=== PATIENT | male | born 1935 | race Caucasian/White ===

== ENCOUNTER 2017-09-22 04:06 | Inpatient (IN) | payer OTHER, MEDICARE ==
[~2017-09-22] VITALS: Ht 185.4 cm; Wt 123.8 kg
[~2017-09-22 04:06] MED LIST: AMLODIPINE10 MG PO; BENICAR HCT 12.1 TA2 PO; CIPRO 500MG TA500 MG PO; DOCUSATE SODIU100 MG PO; DOXAZOSIN MESYLA1 MG PO; EDARBI40 MG PO; ELIQUIS5 MG PO; FERRALET 90 TA1 EACH PO; FUROSEMIDE20 M1 PO; INVOKANA100 MG PO; JARDIANCE10 M1 PO; LOSARTAN POTAS100 MG PO; LOVASTATIN40 MG PO; MAGNESIUM OXID400 MG PO; MAGNESIUM500 M2 PO; METFORMIN HYD1000 MG PO; NATURE'S BLEND400 IU PO; VICODIN5-300 PO; VICTOZA6 MG/ML SC; VITAMIN B12250 MCG PO; VITAMIN B12500 MCG PO; VITAMIN D1000 IU PO
--- NOTE | 2017-09-22 10:17 | Operative Report ---
Operative/Inv Procedure Report Surgery Date: 09/22/17 Name of Procedure: Left total hip arthroplasty Pre-Operative Diagnosis: Primary osteoarthritis left hip Post-Operative Diagnosis: Same Estimated Blood Loss: 300 cc Surgeon/Traffic Ii Manager: Sylwia FROST,Dennis Ortega PAC Anesthesia: general endotracheal tube IV Fluids: See anesthesia record Implants: [place] Accolade 2 total hip prosthetic femoral stem, Roe Trident acetabular shell size 62 with a standard neck length and a 36 mm head stem at 127 neck angle Drains: None Specimens: Left femoral head Complications: None Condition: Stable Operative Indication: Patient's an 82-year-old male with severe osteoarthritis of the left hip with failed conservative treatment and was indicated for left total hip arthroplasty. Risks and benefits of procedure were discussed with the patient detail in the office and after clearance from his primary care physician's chief engineer's helper the patient was to proceed with the surgery. Skilled set hands necessary provided by physician assistant Suresh Ortega weighted with retraction and positioning and component assembly throughout the case. Operative/Procedure Note Note: Once informed consent was obtained and the correct limb was identified patient brought to operative room placed on table supine position. After administration of general endotracheal anesthesia the patient was placed in right lateral decubitus position on the pegboard with the axillary roll in place and all bony prominences well-padded. A Orosco catheter had been placed. The left lower 70 was then prepped and draped usual sterile fashion. To begin the procedure standard incision for the superior approach the left hip was made from the tip of the greater trochanter and carried posteriorly and line with gluteus karma. Sharp dissection was carried down to the skin and subcutaneous tissue. The gluteus karma fascia was identified and incised sharply with a #10 blade. The fibers of the gluteus karma were bluntly dissected. Retractors were placed underneath the gluteus medius and around the femoral neck. The piriformis tendon was identified and released released from its insertion the piriformis fossa and tacked. The gluteus minimus muscle belly was identified and the retractors placed deep to that. Superior capsulotomy was performed. Labrum was removed from the acetabulum and the hip was dislocated. Femoral neck cut was made 1 fingerbreadth above the lesser trochanter and the femoral head was passed off as specimen. Anterior and inferior acetabular retractors were placed for visualization purposes. Osteophytes removed from the anterior medial wall of the acetabulum with a curved osteotome. Reaming was begun with the 47 reamer and we sequentially reamed up to a 61 reamer. A 62 trial was placed and found to be a good fit. A 62 acetabular shell was opened and after the acetabulum was pulse lavaged the acetabular shell was placed into the acetabulum was press-fit technique. Excellent fixation was obtained. No need for screw supplementation. The liner was opened and locked into place on the acetabular shell. Attention was then turned to the femur. The femur was internally rotated and a femoral neck elevator was placed underneath the femoral neck and a retractor was placed underneath the lateral femoral neck for visualization purposes a box osteotome was used to open up the femoral canal laterally. An initial reamer was used to open up distally and we then began broaching. We were able to broach up to a size 8 Accolade 2 stem. This was left in place and a standard neck length and a 36 mm head was placed on the stem for trial reduction. Leg lengths were basically equal although leg lengths are difficult to senior underwriting assistant due to flexion contractures of both knees and arthritis in the right hip. The hip was stable to 90 of flexion and 20 of internal rotation with 20 of adduction. The hip was dislocated and the components removed. A size 8 active bleed 2 stem was opened and press-fit down the femoral canal without any complication. 36 mm head and 0 neck length was opened and placed onto the stem. The hip was reduced and taken through a range of motion. It was again found to be stable. At this point and hip was pulse lavaged. The capsule was repaired through drill hole in the greater trochanter. The gluteus karma fascia was repaired with #1 running looped Maxon suture. The subcutaneous tissues closed with #1 Vicryl and 2-0 Vicryl interrupted sutures and the skin was closed campbell. Sterile dressing was applied and patient was awakened taken recovery in stable condition.
--- NOTE | 2017-09-22 11:28 | RADIOLOGY REPORT ---
EXAMINATION: XR HIP, LEFT CLINICAL INFORMATION: Left hip replacement COMPARISON: 05/31/2017 TECHNIQUE: Left hip, single AP view FINDINGS: Large body habitus. The femoral head prosthesis appears well-positioned within the acetabular cup on this single view exam. The acetabular cup is appropriately abducted. The femoral stem is well centered in the medullary cavity of the proximal femoral diaphysis and there is no periprosthetic fracture. Skin campbell project lateral to the hip. IMPRESSION: - The hardware for the left hip arthroplasty appears appropriately positioned on this single view exam. - No acute periprosthetic fracture.
[2017-09-22 12:05] VITALS: BP 120/80
--- NOTE | 2017-09-22 13:56 | Cons- Medical ---
Vinnie FROST,Kirill 09/22/17 1356: General Information and HPI Consulting Request Date of Consult: 09/22/17 Requested By: Sylwia FROST,Dennis Mayers Reason for Consult: co-mgmt of medical conditions Source of Information: patient, family, old records Exam Limitations: no limitations History of Present Illness: This is an 82-year-old gentleman with past medical history significant for atrial fibrillation, hypertension, diabetes, BPH, hyperlipidemia, past surgical history significant for lap Meagan for gallstone pancreatitis, carpal tunnel surgery, bilateral knee replacements, who is admitted to the surgical service for planned left total hip arthroplasty secondary to primary osteoarthritis. Medicine consult placed for co-management for his co-morbid medical conditions. The procedure was performed this a.m. with EBL 300 mL. I saw patient postsurgically and he is doing very well. He was eating and voiding with Orosco in place. No bowel movement and no complaints. He states that he has less pain in his hip postsurgically then his baseline lvl of pain. Patient denies any headache, change in vision, shortness of breath, chest pain, fever, nausea, vomiting, or diarrhea. Social history significant for occasional/social use of etoh, no IVDA or smoking. Allergies/Medications Allergies: Coded Allergies: oxycodone (GI, JUMPY 09/22/17) Home Med List: Amlodipine Besylate (Amlodipine) 10 MG TABLET 1 TAB PO DAILY HTN (Reported) CHOLECALCIFEROL (VITAMIN D3) (Vitamin D3) 400 UNIT TABLET 1 TAB PO DAILY SUPPLEMENT (Reported) Empagliflozin (Jardiance) 10 MG TABLET 1 TAB PO DAILY OTHER (Reported) Furosemide 20 MG TABLET 1 TAB PO BID DIURETIC (Reported) Iron Carb,Gl/FA/B12/C/Docusate (Ferralet 90 Tablet) 90 MG-1 MG-12 MCG-120 MG-50 MG TABLET 1 TAB PO DAILY SUPPLEMENT (Reported) Losartan Potassium 100 MG TABLET 1 TAB PO DAILY HTN (Reported) Lovastatin 40 MG TABLET 1 TAB PO EOD CHOLESTEROL (Reported) with food Magnesium Oxide (Magnesium) 500 MG CAPSULE 1 CAP PO BID SUPPLMENT (Reported) METFORMIN HCL (Metformin Hydrochloride) 1,000 MG TABLET 1 TAB PO BID DIABETES (Reported) Current Medications: Current Medications Sig/Becca Start time Last Medication Dose Route Stop Time Status Admin Acetaminophen 650 MG ONCE 09/22 0000 DC PO 09/22 2359 Al Hydroxide/Mg 30 ML Q6P PRN 09/22 1215 AC Hydroxide PO Amlodipine Besylate 10 MG DAILY 09/23 1000 AC PO Apixaban 5 MG BID 09/23 1000 AC PO Atorvastatin Calcium 10 MG 1700 09/23 1700 AC PO Celecoxib 400 MG DAILY 09/23 1000 AC PO Celecoxib 400 MG ONCE 09/22 0000 DC PO 09/22 2359 Dexamethasone 10 MG ONCE 09/22 0000 DC IV 09/22 2359 Docusate Sodium 100 MG DAILY NEEDED PRN 09/22 1215 AC PO Doxazosin Mesylate 1 MG DAILY 09/22 1530 AC 09/22 PO 1707 Fentanyl Citrate 250 MCG .STK-MED ONE 09/22 0713 DC IM 09/22 0714 Furosemide 20 MG BID 09/22 2200 AC PO Gabapentin 300 MG ONCE 09/22 0000 DC PO 09/22 2359 Hydrocodone Bitart/ 1 TAB Q6P PRN 09/22 1215 AC Acetaminophen PO Hydrocodone Bitart/ 2 TAB Q6P PRN 09/22 1215 AC Acetaminophen PO Hydromorphone HCl 2 MG .STK-MED ONE 09/22 0713 DC IM 09/22 0714 Insulin Aspart 0 AT BEDTIME 09/22 2200 AC SC Insulin Aspart 0 TIDAC 09/22 1700 AC 09/22 SC 1700 Losartan Potassium 100 MG DAILY 09/23 1000 AC PO Metformin HCl 1,000 MG BID 09/22 2200 AC PO Midazolam HCl 4 MG .STK-MED ONE 09/22 0714 DC IM 09/22 0715 Morphine Sulfate 2 MG Q3P PRN 09/22 1215 AC IV Morphine Sulfate 4 MG Q3P PRN 09/22 1215 AC IV Ondansetron HCl 4 MG Q6P PRN 09/22 1215 AC IV Oxycodone HCl 0 .STK-MED ONE 09/22 0651 DC PO Oxycodone HCl 10 MG ONCE 09/22 0000 DC PO 09/22 2359 Polyethylene Glycol 17 GM DAILY NEEDED PRN 09/22 1215 AC PO Scopolamine HBr 1 PAT ONCE 09/22 0000 DC TOP 09/22 2359 Senna/Docusate Sodium 2 TAB AT BEDTIME NEED.. 09/22 1215 AC PO Sodium Chloride 1,000 ML .[id number] 09/22 1215 DC 09/22 IV 1228 Tranexamic Acid 2,000 MG .STK-MED ONE 09/22 0713 DC IV 09/22 0714 Vancomycin HCl 2,000 MG ONCE ONE 09/22 1900 AC Sodium Chloride 500 ML IV 09/22 205 Vancomycin HCl 2,000 MG ONCE 09/22 0000 DC Sodium Chloride 500 ML IV 09/22 2359 Review of Systems Review of Systems Constitutional: Reports: see HPI. Past History Medical History Blood Transfusion Hx: Yes Neurological: NONE EENT: NONE Cardiovascular: AFIB, hypertension, hyperlipidemia Respiratory: NONE Gastrointestinal: NONE Hepatic: NONE Renal: NONE Musculoskeletal: osteoarthritis Psychiatric: NONE Endocrine: diabetes Blood Disorders: NONE Cancer(s): NONE Surgical History Surgical History: cholecystectomy, hernia repair-inguinal, knee replacement Psychosocial History Where Do You Live? Home Services at Home: None Smoking Status: Unknown If Ever Smoked Exam & Diagnostic Data Last 24 Hrs of Vital Signs/I&O Vital Signs Date Time Temp Pulse Resp B/P B/P Pulse O2 O2 Flow FiO2 Mean Ox Delivery Rate 09/22 1630 98.1 70 19 132/72 96 Room Air 09/22 1437 97.7 73 18 130/70 95 Room Air 09/22 1205 97.6 63 16 120/80 94 Room Air Room Air Intake & Output 09/22 1600 09/22 0800 09/22 0000 Intake Total 950 Output Total 300 Balance 650 Intake, IV 150 Intake, Oral 800 Number 0 Bowel Movements Output, Urine 300 Patient 123.831 kg Weight Weight Bed scale Measurement Method Physical Exam General Appearance: well developed/nourished, no apparent distress, alert, awake , comfortable Head: atraumatic, normal appearance Eyes: Bilateral: PERRL, EOMI. Ears, Nose, Throat: normal ENT inspection Neck: supple Respiratory: normal breath sounds, chest non-tender, no respiratory distress, quiet respiration, lungs clear Cardiovascular: irregularly irregular Gastrointestinal: soft, non-tender Extremities: Pt tender to move L leg. Area of surgery clean to inspection. He has foam pad and band around his legs. sensation intact. LLE has venous stasis changes and a superficial abrasion underneath ALP. Last 24 Hrs of Labs/Bulmaro: as Assessment/Plan Assessment/Plan This is an 82-year-old gentleman with past medical history significant for atrial fibrillation, hypertension, diabetes, BPH, hyperlipidemia who is admitted to the surgical service for planned left total hip arthroplasty secondary to primary osteoarthritis. Medicine consult placed for co-management for his co- morbid medical conditions. No labs were done today X-ray of his hip shows good placement of hardware and no acute periprosthetic fracture. Plan: 1. Hypertension: Patient has BP 120/80 today. Will hold off on starting his medications until tomorrow. * Continue amlodipine 10 mg daily * Continue losartan 100 mg daily * Lisinopril 40mg bid 2. Atrial fibrillation: Patient has history of A. fib status post unsuccessful cardioversion. He is currently on 5 mg of Eliquis twice a day. * Soon as there is no surgical contraindication would suggest restarting Eliquis 3. BPH:Would start doxazosin 1 mg daily today. He is getting IV fluids. Given that he is on lasix at home and is not started in hospital would hold be judicious in not giving him too much fluid. * Start Doxizosin 1mg daily 4. DM: Last A1c in 2016 at 8.0. Hold home oral meds * RISS * FS * Diabetic diet 5. Other supplements: Pt is on Mag 500mg daily, B12, and Vit D at home. These can be resumed tomorrow. FC Diabetic diet Problem List: 1. A-fib 2. Unilateral primary osteoarthritis, left hip Consult Acknowledgment - Thank you for your consult request. Lizzy FROST,Sushma 09/22/17 1439: Past History Psychosocial History Other Social History: Family history is positive for hypertension. He also says that his a cancer in his family but he is not sure what type. Assessment/Plan Consult Acknowledgment - Thank you for your consult request. Attending MD Review Statement Attending Statement Attending MD Statement: examined this patient, discuss w/resident/PA/SOCIAL SCIENCES RESEARCH SCIENTIST, agreed w/resident/PA/SOCIAL SCIENCES RESEARCH SCIENTIST, reviewed EMR data (avail), discussed with nursing, reviewed images Attending Assessment/Plan: 82-year-old male past medical history of hypertension, hyperlipidemia, diabetes, A. fib who is here status post a total hip arthroplasty. Patient takes Eliquis in addition to his diabetic meds and his antihypertensives and in addition he is on Lasix 40 by mouth twice a day as an outpatient as well. Right now he is asymptomatic and doing well. He doesn't appear to be in congestive heart failure and is not having any clinical signs and symptoms suggestive of ischemia. Will follow closely. Continue his antihypertensives, continue his cholestrol and antihypertensive meds. Restart his diabetic meds once he is eating a diet. We will alert the surgical PA to be very judicious with the use of IV fluids given the hefty dose of Lasix that he takes. And they will also need to restart the Eliquis as soon as it's okay with the orthopedic physician for his A. fib.
[2017-09-22 14:37] VITALS: BP 130/70
--- NOTE | 2017-09-22 15:13 | PN- Orthopedic ---
Subjective Subjective: POSTOP CHECK oob to chair, +uo via aguilar, no n/v, no cp/sob/palps, christi ada diet, pain well controlled. Objective Vital Signs and I&Os Vital Signs Date Time Temp Pulse Resp B/P B/P Pulse O2 O2 Flow FiO2 Mean Ox Delivery Rate 09/22 1437 97.7 73 18 130/70 95 Room Air 09/22 1205 97.6 63 16 120/80 94 Room Air Room Air Intake & Output 09/22 1600 09/22 0800 09/22 0000 09/21 1600 09/21 0800 09/21 0000 Intake Total 950 Output Total 300 Balance 650 Intake, IV 150 Intake, Oral 800 Number 0 Bowel Movements Output, Urine 300 Patient 273 lb Weight Weight Bed scale Measurement Method FS: 259 Physical Exam: GEN- NAD CARD- S1S2 RRR PULM- CTAB ABD- soft nt obese EXT- LLE: hip dressing CDI, ttp at incision, gross motor/sensory intact, palp DP. BLE: calves soft, nt Assessment/Plan Assessment/Plan A- POD0 sp L SMITHA, stable, with appropriate postop pain, PT recommending STR placement, with uncontrolled FS at this time. P- - ada diet as tolerated - HL - WBAT, PT, OOB - ALPS, Eliquis 5mg BID - prn pain meds - home meds, FS, add RISS in addition to home metformin - DC planning Core Measures Venous Thromboembolism VTE Risk Factors Surgery No Mechanical VTE Prophylaxis d/t N/A MechProphylax Ordered No VTE Pharm Prophylaxis d/t NA PharmProphylax ordered
--- NOTE | 2017-09-22 15:17 | Patient Discharge Instructions ---
Discharge Instructions General Discharge Information You were seen/treated for: Left hip pain related to unilateral primary osteoarthritis You had these procedures: Left total hip replacement Watch for these problems: Increasing pain despite the use of pain medication Increasing redness, warmth or swelling Drainage of any type from incision Inability to bear weight on operative leg Persistent nausea and vomiting Fever greater than 101.5 degrees Do not soak the wound: Yes No bath, but you may shower: Yes Other wound care: Please keep wound clean and dry. No ointments or lotions of any type on or near incision at any time. No exceptions. Your dressing will be changed by your nurse on the second day after your surgery. Daily dry dressing changes are recommended each day thereafter. Do not soak your wound in a bath at any time until otherwise indicated by your surgeon. You may shower, please dry wound immediately after shower with a clean towel. Special Instructions: Posterior hip precautions to remain in place for 3 months unless otherwise indicated by Dr. Dao. They include the following: -No bending at waste greater than 90 degrees -Do not cross left leg over right leg -Avoid rotating left leg inward Diet Continue normal diet: Yes Recommended Diet: Regular Activity Full Activity/No Limits: No Activity Self Limited: Yes Pounds, do NOT lift more than: 10 Activity Limited to: Weight bear as tolerated Acute Coronary Syndrome Inclusion Criteria At DC or during hospital stay patient has or had the following: ACS DIAGNOSIS No Discharge Core Measures Meds if any: Prescribed or Continued at Discharge Meds if any: NOT Prescribed or Continued at Discharge Congestive Heart Failure Inclusion Criteria At DC or during hospital stay patient has or had the following: CHF DIAGNOSIS No Discharge Core Measures Meds if any: Prescribed or Continued at Discharge Meds if any: NOT Prescribed or Continued at Discharge Cerebrovascular accident Inclusion Criteria At DC or during hospital stay patient has or had the following: CVA/TIA Diagnosis No Discharge Core Measures Meds if any: Prescribed or Continued at Discharge Meds if any: NOT Prescribed or Continued at Discharge Venous thromboembolism Inclusion Criteria VTE Diagnosis No VTE Type NONE VTE Confirmed by (Test) NONE Discharge Core Measures - Per Current guidelines, there needs to be overlap - treatment for the first 5 days of Warfarin therapy. - If discharged on Warfarin prior to 5 days of - overlap therapy, the patient will need to be - assessed for post discharge needs including - *Post discharge parental anticoagulation - *Warfarin and/or parental anticoagulation education - *Follow up date to check INR post discharge At least 5 days overlap therapy as Inpatient No Meds if any: Prescribed or Continued at Discharge Note: Overlap Therapy is Warfarin and Anticoagulant Meds if any: NOT Prescribed or Continued at Discharge
--- NOTE | 2017-09-22 15:19 | Surgical Discharge Summary ---
Visit Information Visit Dates Admission Date: 09/22/17 Discharge Date: 09/28/17 History of Present Illness Chief Complaint: Left hip pain related to unilateral primary osteoarthritis Medical History Blood Transfusion Hx: Yes Neurological: NONE EENT: NONE Cardiovascular: AFIB, hypertension, hyperlipidemia Respiratory: NONE Gastrointestinal: NONE Hepatic: NONE Renal: NONE Musculoskeletal: osteoarthritis Psychiatric: NONE Endocrine: diabetes Blood Disorders: NONE Cancer(s): NONE History of MRSA: No History of VRE: No History of CDIFF: No Isolation History: Standard Pneumonia Vaccine: 08/12/06 Influenza Vaccine: 08/20/17 Surgical History Pertinent Surgical History: cholecystectomy, hernia repair-inguinal, knee replacement Psychosocial History Where Do You Live? Home Who Do You Live With? Patient/Self Services at Home: None What is Your Primary Language? Tristanian Review of Systems: See H&P Hospital Course Course Attending Physician: Dennis Dao MD Primary Care Physician: Danilo Paredes MD Hospital Course: Patient was admitted to the hospital for an elective total joint replacement. The procedure was tolerated well and patient was transferred to a general surgical floor. Pt was noted to be confused postoperatively and required a 1:1 sitter x 2 days postop. Confusion eventually resolved, Diet was advanced and tolerated, and the patient voided spontaneously. The patient was evaluated and treated by physical therapy. At the time of hospital discharge, the vital signs were stable, neurovascular status was intact, and pain was controlled with the use of oral pain medications. Allergies: Coded Allergies: oxycodone (GI, JUMPY 09/22/17) Disposition Summary Disposition Principal Diagnosis: Left hip unilateral primary osteoarthritis Additional Diagnosis: None Discharge Disposition: SNF Discharge Instructions General Discharge Information Code Status: Full Code Patient's Diet: Regular, Advance as tolerated Patient's Activity: WBAT Follow-Up Instructions/Appts: Follow up in Dr. Dao's office in 2 weeks from date of surgery Medications at Discharge Discharge Medications: Continue taking these medications: Amlodipine Besylate (Amlodipine) 10 MG TABLET 1 Tablet ORAL DAILY Qty = 30 Comments: Last Taken: 10/06/14 Time: 0820AM METFORMIN HCL (Metformin Hydrochloride) 1,000 MG TABLET 1 Tablet ORAL TWICE DAILY Qty = 60 Comments: Last Taken: 10/06/14 Time: 0820AM Furosemide (Furosemide) 20 MG TABLET 1 Tablet ORAL TWICE DAILY Comments: Last Taken: 09/27/17 Time: 1100AM Lovastatin (Lovastatin) 40 MG TABLET 1 Tablet ORAL Every other day Qty = 30 Instructions: with food Comments: Last Taken: 10/05/14 Time: 1630PM (LIPITOR) Losartan Potassium (Losartan Potassium) 100 MG TABLET 1 Tablet ORAL DAILY Qty = 90 Comments: Last Taken: 10/06/14 Time: 0820AM CHOLECALCIFEROL (VITAMIN D3) (Vitamin D3) 400 UNIT TABLET 1 Tablet ORAL DAILY Comments: NOT GIVEN IN HOSPITAL Iron Carb,Gl/FA/B12/C/Docusate (Ferralet 90 Tablet) 90 MG-1 MG-12 MCG-120 MG-50 MG TABLET 1 Tablet ORAL DAILY Comments: NOT GIVEN IN HOSPITAL Empagliflozin (Jardiance) 10 MG TABLET 1 Tablet ORAL DAILY Comments: NOT GIVEN IN HOSPITAL Magnesium Oxide (Magnesium) 500 MG CAPSULE 1 Capsule ORAL TWICE DAILY Comments: Last Taken: 09/27/17 Time: 1100AM Start taking the following new medications: Apixaban (Eliquis) 5 MG TABLET 1 Tablet ORAL TWICE DAILY Qty = 84 No Refills Comments: Last Taken: 09/27/17 Time: 1100AM Hydrocodone/Acetaminophen (Hydrocodon-Acetaminophen 5-325) 5 MG-325 MG TABLET 1-2 Tablet ORAL EVERY 4-6 HOURS NEEDED as needed for PAIN Qty = 30 No Refills Comments: Last Taken:09/26/17 Time: 2300PM
--- NOTE | 2017-09-22 15:20 | Admission Core Measures ---
Acute Coronary Syndrome (CM) ACS Core Measures Acute Coronary Syndrome Diagnosis No Congestive Heart Failure (NEW) CHF Core Measures Congestive Heart Failure Diagnosis No Cerebrovascular Accident (NEW) CVA Core Measures CVA/TIA Diagnosis No Venous Thromboembolism VTE Core Jose (View Protocol) VTE Risk Factors Surgery No Mechanical VTE Prophylaxis d/t N/A MechProphylax Ordered No VTE Pharm Prophylaxis d/t NA PharmProphylax ordered Problem List As ranked by this Provider includes Assessment & Plan 1. Unilateral primary osteoarthritis, left hip HOME MEDS Home Med List Amlodipine Besylate (Amlodipine) 10 MG TABLET 1 TAB PO DAILY HTN (Reported) CHOLECALCIFEROL (VITAMIN D3) (Vitamin D3) 400 UNIT TABLET 1 TAB PO DAILY SUPPLEMENT (Reported) Empagliflozin (Jardiance) 10 MG TABLET 1 TAB PO DAILY OTHER (Reported) Furosemide 20 MG TABLET 1 TAB PO BID DIURETIC (Reported) Iron Carb,Gl/FA/B12/C/Docusate (Ferralet 90 Tablet) 90 MG-1 MG-12 MCG-120 MG-50 MG TABLET 1 TAB PO DAILY SUPPLEMENT (Reported) Losartan Potassium 100 MG TABLET 1 TAB PO DAILY HTN (Reported) Lovastatin 40 MG TABLET 1 TAB PO EOD CHOLESTEROL (Reported) Magnesium Oxide (Magnesium) 500 MG CAPSULE 1 CAP PO BID SUPPLMENT (Reported) METFORMIN HCL (Metformin Hydrochloride) 1,000 MG TABLET 1 TAB PO BID DIABETES (Reported)
[2017-09-22 16:30] VITALS: BP 132/72
[2017-09-22 21:51] VITALS: BP 110/64
[2017-09-23 02:13] VITALS: BP 120/62
[2017-09-23 06:16] VITALS: BP 120/66
--- NOTE | 2017-09-23 07:41 | PN- Neurosurgical ---
Core Measures Venous Thromboembolism VTE Risk Factors Surgery No Mechanical VTE Prophylaxis d/t N/A MechProphylax Ordered No VTE Pharm Prophylaxis d/t NA PharmProphylax ordered
--- NOTE | 2017-09-23 08:02 | PN- Orthopedic ---
See Addendum Subjective Subjective: Patient reports postop pain, which is well controlled. He reports a sore throat last night which resolved spontanously. He denies any cough, fever, chills, numbness or tingling. He reports his aguilar was removed this morning and states he is passing gas an tolerating a diet. He reports ambualting with PT, who is recommending STR Objective Vital Signs and I&Os Vital Signs Date Time Temp Pulse Resp B/P B/P Pulse O2 O2 Flow FiO2 Mean Ox Delivery Rate 09/23 0748 80 132/80 09/23 0616 98.2 60 20 120/66 94 09/23 0213 98.1 62 20 120/62 94 09/22 2151 98.1 67 19 110/64 94 Room Air 09/22 1630 98.1 70 19 132/72 96 Room Air 09/22 1437 97.7 73 18 130/70 95 Room Air 09/22 1205 97.6 63 16 120/80 94 Room Air Room Air Intake & Output 09/23 0800 09/23 0000 09/22 1600 09/22 0800 09/22 0000 09/21 1600 Intake Total 2150 950 Output Total 850 300 Balance 1300 650 Intake, IV 950 150 Intake, Oral 1200 800 Number 0 Bowel Movements Output, Urine 850 300 Patient 273 lb Weight Weight Bed scale Measurement Method Physical Exam: General: Resting comforably in a chair awake an alert in NAD Cardiac: S1S2 noted, RRR Lungs: Good air entry, CTAB Ext: Left hip dressing C/D/I, moves all extremities, motor an sensory intact with decreaesd strength in LLE, no edema or calf tenderness B/L Current Medications: Current Medications Sig/Becca Start time Last Medication Dose Route Stop Time Status Admin Acetaminophen 650 MG ONCE 09/22 0000 DC PO 09/22 235 Al Hydroxide/Mg 30 ML Q6P PRN 09/22 1215 AC Hydroxide PO Amlodipine Besylate 10 MG DAILY 09/23 1000 AC 09/23 PO 0748 Apixaban 5 MG BID 09/23 1000 AC 09/23 PO 0747 Atorvastatin Calcium 10 MG 1700 09/23 1700 AC PO Celecoxib 400 MG DAILY 09/23 1000 AC 09/23 PO 0748 Celecoxib 400 MG ONCE 09/22 0000 DC PO 09/22 235 Dexamethasone 10 MG ONCE 09/22 0000 DC IV 09/22 2359 Docusate Sodium 100 MG DAILY NEEDED PRN 09/22 1215 AC 09/23 PO 0748 Doxazosin Mesylate 1 MG DAILY 09/22 1530 AC 09/23 PO 0748 Furosemide 20 MG BID 09/22 2200 AC 09/23 PO 0748 Gabapentin 300 MG ONCE 09/22 0000 DC PO 09/22 2359 Hydrocodone Bitart/ 1 TAB Q6P PRN 09/22 1215 AC 09/23 Acetaminophen PO 0151 Hydrocodone Bitart/ 2 TAB Q6P PRN 09/22 1215 AC Acetaminophen PO Insulin Aspart 0 AT BEDTIME 09/22 2200 AC 09/22 SC 2047 Insulin Aspart 0 TIDAC 09/22 1700 AC 09/23 SC 0747 Losartan Potassium 100 MG DAILY 09/23 1000 AC 09/23 PO 0748 Metformin HCl 1,000 MG BID 09/22 2200 AC 09/23 PO 0748 Morphine Sulfate 2 MG Q3P PRN 09/22 1215 AC IV Morphine Sulfate 4 MG Q3P PRN 09/22 1215 AC IV Ondansetron HCl 4 MG Q6P PRN 09/22 1215 AC IV Oxycodone HCl 10 MG ONCE 09/22 0000 DC PO 09/22 2359 Polyethylene Glycol 17 GM DAILY NEEDED PRN 09/22 1215 AC PO Scopolamine HBr 1 PAT ONCE 09/22 0000 DC TOP 09/22 2359 Senna/Docusate Sodium 2 TAB AT BEDTIME NEED.. 09/22 1215 AC PO Sodium Chloride 1,000 ML .[id number] 09/22 1215 DC 09/22 IV 1228 Vancomycin HCl 2,000 MG ONCE ONE 09/22 1900 DC 09/22 Sodium Chloride 500 ML IV 09/22 205 2041 Vancomycin HCl 2,000 MG ONCE 09/22 0000 DC Sodium Chloride 500 ML IV 09/22 2359 Results Last 48 Hours of Labs: Laboratory Tests 09/23 602 Chemistry Sodium Pending Potassium Pending Chloride Pending Carbon Dioxide Pending Anion Gap Pending BUN Pending Creatinine Pending BUN/Creatinine Ratio Pending Hematology CBC w Diff Pending WBC Pending RBC Pending Hgb Pending Hct Pending MCV Pending MCH Pending RDW Pending Plt Count Pending MPV Pending PUBS MCHC Pending Assessment/Plan Assessment/Plan This is an 82 year-old male with a history of DM, HTN, HLD and afib who is POD 1 s/p L SMITHA with hyperglycemia, which is improving Cont ada diet Cont pain regimen Cont PT, wbat Home meds on board Cont fs, ISS on board Bowel regimen on board DVT ppx - alps, eliquis 5mg BID Due to void in 6 hours Encourage IS F/u am labs Appreciate medicine involvment Anticipate d/c STR in 2 days Will d/w Dr. Jiang Core Measures Venous Thromboembolism VTE Risk Factors Surgery No Mechanical VTE Prophylaxis d/t N/A MechProphylax Ordered No VTE Pharm Prophylaxis d/t NA PharmProphylax ordered
[2017-09-23 08:10] LABS: ABSOLUTE BASOPHIL COUNT 0 /CUMM (0.0-0.2); ABSOLUTE EOSINOPHIL COUNT 0 /CUMM (0.0-0.7); ABSOLUTE GRANULOCYTE CT 9.5 /CUMM (1.4-6.5); ABSOLUTE LYMPH COUNT 2.1 /CUMM (1.2-3.4); ABSOLUTE MONOCYTE COUNT 0.8 /CUMM (0.10-0.60); BASOPHIL % 0.3 % (0.0-2.0); EOSINOPHIL % 0.2 % (0-5); GRANULOCYTE % 76.4 % (42.2-75.2); HEMATOCRIT 34.8 % (42-52); MEAN CORPUSCULAR HGB CONC 34.5 G/DL (33.0-37.0); MEAN CORPUSCULAR VOLUME 84.1 FL (80.0-94.0); MEAN PLATELET VOLUME 9.6 FL (7.4-10.4); PLATELET COUNT 220 /CUMM (130-400); RBC DISTRIBUTION WIDTH 16.4 % (11.5-14.5); RED BLOOD CELL CT 4.14 /CUMM (4.70-6.10); WHITE BLOOD CELL COUNT 12.4 /CUMM (4.8-10.8)
--- NOTE | 2017-09-23 09:16 | PN- Medicine Consult ---
Vinnie FROST,Kirill 09/23/17 0915: Assessment/Plan Assessment/Plan Assessment: ASSESSMENT:This is an 82-year-old gentleman with past medical history significant for atrial fibrillation, hypertension, diabetes, BPH, hyperlipidemia who is admitted to the surgical service for planned left total hip arthroplasty secondary to primary osteoarthritis. Medicine consult placed for co-management for his co-morbid medical conditions. This is POD#1. PLAN: 1. Hypertension: Patient has BP 120/62-132/80 today. Note that JNC 8 does allow more lax BP control in pts over age 60. Permissible BP up to 150 systolic. Pt is on an aggressive BP regimen of Amlodipine 10 and Losartan 10 in addition to Lasix 40 BID. If his readings continue to remain low, suspect we can scale back on his BP meds. However, as we just resumed his meds today, would hold off on changing his regimen until we see a trend in pressures while he is on his usual therapy. At this time, continue current management. Will follow along. * Con't Amlodipine 10 mg * Con't Losartan 100 mg * Con't PO Lasix 40mg bid. 20mg is ordered for today. Can increase back to 40 tomorrow if pt eating and drinking at baseline. 2. Atrial fibrillation: Patient has history of A. fib status post unsuccessful cardioversion. He is currently on 5 mg of Eliquis twice a day. Note that with the addition of Celecoxib his HAS-BLED score is 2 placing him in intermediate risk category and his estimated rate of major bleeding is 1.88-3.2% per year. * Con't Eliquis 5mg BID * If possible, would consider non-NSAID mgmt of pain. However, if NSAID is his best option for post-op pain mgmt then would start him on GI prophylaixs in form of PPI 3. BPH: Pt is due for a voiding trial today * Con't Doxizosin 1mg daily 4. DM: Last A1c in 2016 at 8.0. Last FS 211, 310, 357, 259 * RISS-Would increase him to high dose sliding scale as his BS remain uncontrolled. * FS * Diabetic diet * He was restarted on Metformin 1000mg po BID 5. Other supplements: Pt is on Mag 500mg daily, B12, and Vit D at home. These can be resumed today. FC Diabetic diet Plan: see above Subjective Subjective: No acute overnight events. no complaints. Pt was sitting OOB in chair at bedside this AM. He stated that he was feeling very well. Orosco removed, due to void around 1pm. He has not voided yet. He is passing flatus but no BM since surgery. Review of Systems Constitutional: Denies: chills, fever, weakness. EENTM: Denies: visual changes. Cardiovascular: Denies: chest pain, palpitations. Respiratory: Denies: cough, short of breath. Gastrointestinal: Reports: constipation. Denies: abdominal pain, diarrhea. Genitourinary: Reports: no symptoms. Musculoskeletal: Reports: joint pain, muscle stiffness. Skin: Reports: lesions. Objective Last 24 Hrs of Vital Signs/I&O Vital Signs Date Time Temp Pulse Resp B/P B/P Pulse O2 O2 Flow FiO2 Mean Ox Delivery Rate 09/23 1030 98.0 70 20 122/78 97 Room Air 09/23 0748 80 132/80 09/23 0616 98.2 60 20 120/66 94 09/23 0213 98.1 62 20 120/62 94 09/22 2151 98.1 67 19 110/64 94 Room Air 09/22 1630 98.1 70 19 132/72 96 Room Air 09/22 1437 97.7 73 18 130/70 95 Room Air 09/22 1205 97.6 63 16 120/80 94 Room Air Room Air Intake & Output 09/23 1600 09/23 0800 09/23 0000 Intake Total 490 1776 Output Total 800 850 Balance -310 926 Intake, IV 10 576 Intake, Oral 480 1200 Number 0 Bowel Movements Output, Urine 800 850 Physical Exam General Appearance: well developed/nourished, no apparent distress, alert, awake , comfortable Head: atraumatic, normal appearance Cardiovascular: irregularly irregular Respiratory: normal breath sounds, quiet respiration, lungs clear Abdomen: soft, non-tender Extremities: LLE with venous stasis changes and superficial abrasion on fink. Current Medications: Current Medications Sig/Becca Start time Last Medication Dose Route Stop Time Status Admin Acetaminophen 650 MG ONCE 09/22 0000 DC PO 09/22 2359 Al Hydroxide/Mg 30 ML Q6P PRN 09/22 1215 AC Hydroxide PO Amlodipine Besylate 10 MG DAILY 09/23 1000 AC 09/23 PO 0748 Apixaban 5 MG BID 09/23 1000 AC 09/23 PO 0747 Atorvastatin Calcium 10 MG 1700 09/23 1700 AC PO Celecoxib 400 MG DAILY 09/23 1000 AC 09/23 PO 0748 Celecoxib 400 MG ONCE 09/22 0000 DC PO 09/22 2359 Dexamethasone 10 MG ONCE 09/22 0000 DC IV 09/22 2359 Docusate Sodium 100 MG DAILY NEEDED PRN 09/22 1215 AC 09/23 PO 0748 Doxazosin Mesylate 1 MG DAILY 09/22 1530 AC 09/23 PO 0748 Furosemide 20 MG BID 09/22 2200 AC 09/23 PO 0748 Gabapentin 300 MG ONCE 09/22 0000 DC PO 09/22 2359 Hydrocodone Bitart/ 1 TAB Q6P PRN 09/22 1215 AC 09/23 Acetaminophen PO 0151 Hydrocodone Bitart/ 2 TAB Q6P PRN 09/22 1215 AC Acetaminophen PO Insulin Aspart 0 AT BEDTIME 09/22 2200 AC 09/22 SC 2047 Insulin Aspart 0 TIDAC 09/22 1700 AC 09/23 SC 0747 Losartan Potassium 100 MG DAILY 09/23 1000 AC 09/23 PO 0748 Metformin HCl 1,000 MG BID 09/22 2200 AC 09/23 PO 0748 Morphine Sulfate 2 MG Q3P PRN 09/22 1215 AC IV Morphine Sulfate 4 MG Q3P PRN 09/22 1215 AC IV Ondansetron HCl 4 MG Q6P PRN 09/22 1215 AC IV Oxycodone HCl 10 MG ONCE 09/22 0000 DC PO 09/22 2359 Polyethylene Glycol 17 GM DAILY NEEDED PRN 09/22 1215 AC PO Scopolamine HBr 1 PAT ONCE 09/22 0000 DC TOP 09/22 2359 Senna/Docusate Sodium 2 TAB AT BEDTIME NEED.. 09/22 1215 AC PO Sodium Chloride 1,000 ML .[id number] 09/22 1215 DC 09/22 IV 1228 Vancomycin HCl 2,000 MG ONCE ONE 09/22 1900 DC 09/22 Sodium Chloride 500 ML IV 09/22 205 2041 Vancomycin HCl 2,000 MG ONCE 09/22 0000 DC Sodium Chloride 500 ML IV 09/22 2359 Results Last 24 Hrs Lab/Bulmaro Results: Laboratory Tests 09/23/17 0603: Anion Gap 10, Estimated GFR > 60, BUN/Creatinine Ratio 28.9 H, CBC w Diff NO MAN DIFF REQ, RBC 4.14 L, MCV 84.1, MCH 29.0, RDW 16.4 H, MPV 9.6, Gran % 76.4 H, Lymphocytes % 16.5 L, Monocytes % 6.6, Eosinophils % 0.2, Basophils % 0.3, Absolute Granulocytes 9.5 H, Absolute Lymphocytes 2.1, Absolute Monocytes 0.8 H, Absolute Eosinophils 0, Absolute Basophils 0, PUBS MCHC 34.5 Lizzy FROST,Sushma 09/23/17 1151: Attending MD Review Statement Attending Sign Off Attending Cosign Statement: I have: examined this patient, reviewed [employer] E[employer] data, personally reviewd images, discussd w/resident/PA/BIRD KEEPER, discussed mgmt plan w/pt, agreed w/resident/ PA/BIRD KEEPER. Other Findings: Orosco has been taken out this morning and patient is due to void. He does have a history of BPH and is on Doxazosin. His Lasix has been restarted at 20mg twice a day but I believe his usual outpatient doses 40 twice a day will confirm. Agree with resident's note that given that he is on Eliquis, Celebrex should be used with caution and if needed likely he should get a PPI as well. Underlying A. fib and Eliquis restarted today. Underlying A. fib and Eliquis restarted today.
[2017-09-23 10:30] VITALS: BP 122/78
[2017-09-23] MEDS ORDERED: HYDROCODON-ACE1 EAC2 PO (12:01)
[2017-09-23] MEDS ORDERED: ELIQUIS5 M1 PO (12:01)
[2017-09-23 14:54] VITALS: BP 110/58
[2017-09-23 22:31] VITALS: BP 110/60
[2017-09-24 06:35] VITALS: BP 132/66
--- NOTE | 2017-09-24 08:49 | PN- Orthopedic ---
See Addendum Subjective Subjective: Required sitter overnight for confusion. Currently without complaints. Out of bed with rolling walker and assistance. No dizziness. No shortness of breath. No chest pains. Witnessed +flatus. Anticipate discharge to short term rehab tomorrow. Objective Vital Signs and I&Os Vital Signs Date Time Temp Pulse Resp B/P B/P Pulse O2 O2 Flow FiO2 Mean Ox Delivery Rate 09/24 0635 98.1 80 18 132/66 92 Room Air 09/23 2231 98.3 67 19 110/60 95 Room Air 09/23 1454 98.1 60 20 110/58 96 Room Air 09/23 1030 98.0 70 20 122/78 97 Room Air Intake & Output 09/24 1600 09/24 0809/24 0000 09/23 1600 09/23 0800 09/23 0000 Intake Total 300 494 182 4915 Output Total 650 500 50 800 850 Balance -650 -200 860 -310 926 Intake, IV 10 10 576 Intake, Oral 300 401 851 8549 Number 0 0 Bowel Movements Output, Urine 650 500 50 800 850 Physical Exam: General - alert & oriented to person, place, situation, and month/year. no acute distress. Lungs - clear bilaterally. no w/r/r. Cardiac - s1s2. irreg irreg. Abdomen - soft. nontender. Extremities - warm bilaterally. left hip dressing changed. incision approximated with campbell. no erythema or exudates. no drains. calves soft and nontender b/l. athrombics in place. nvi. Current Medications: Current Medications Sig/Becca Start time Last Medication Dose Route Stop Time Status Admin Al Hydroxide/Mg 30 ML Q6P PRN 09/22 1215 AC Hydroxide PO Amlodipine Besylate 10 MG DAILY 09/23 1000 AC 09/23 PO 0748 Apixaban 5 MG BID 09/23 1000 AC 09/23 PO 2155 Atorvastatin Calcium 10 MG 1700 09/23 1700 AC 09/23 PO 1652 Celecoxib 400 MG DAILY 09/23 1000 AC 09/23 PO 0748 Docusate Sodium 100 MG DAILY NEEDED PRN 09/22 1215 AC 09/23 PO 0748 Doxazosin Mesylate 1 MG DAILY 09/22 1530 AC 09/23 PO 0748 Furosemide 20 MG BID 09/22 2200 AC 09/23 PO 2155 Hydrocodone Bitart/ 1 TAB Q6P PRN 09/22 1215 AC 09/23 Acetaminophen PO 0151 Hydrocodone Bitart/ 2 TAB Q6P PRN 09/22 1215 AC 09/24 Acetaminophen PO 0255 Insulin Aspart 0 AT BEDTIME 09/22 2200 AC 09/22 SC 2047 Insulin Aspart 0 TIDAC 09/22 1700 AC 09/23 SC 1652 Lorazepam 0.5 MG Q4P PRN 09/23 2345 AC 09/24 IV 0255 Losartan Potassium 100 MG DAILY 09/23 1000 AC 09/23 PO 0748 Metformin HCl 1,000 MG BID 09/22 2200 AC 09/23 PO 2155 Morphine Sulfate 2 MG Q3P PRN 09/22 1215 AC IV Morphine Sulfate 4 MG Q3P PRN 09/22 1215 AC IV Omeprazole 20 MG DAILY AC 09/24 0700 AC 09/24 PO 0701 Ondansetron HCl 4 MG Q6P PRN 09/22 1215 AC IV Polyethylene Glycol 17 GM DAILY NEEDED PRN 09/22 1215 AC PO Senna/Docusate Sodium 2 TAB AT BEDTIME NEED.. 09/22 1215 AC PO Results Last 48 Hours of Labs: Laboratory Tests 09/23 0603 Chemistry Sodium (137 - 145 mmol/L) 134 L Potassium (3.5 - 5.1 mmol/L) 4.4 Chloride (98 - 107 mmol/L) 100 Carbon Dioxide (22 - 30 mmol/L) 24 Anion Gap (5 - 16) 10 BUN (9 - 20 mg/dL) 26 H Creatinine (0.7 - 1.2 mg/dL) 0.9 Estimated GFR (>60 ml/min) > 60 BUN/Creatinine Ratio (7 - 25 %) 28.9 H Hematology CBC w Diff NO MAN DIFF REQ WBC (4.8 - 10.8 /CUMM) 12.4 H RBC (4.70 - 6.10 /CUMM) 4.14 L Hgb (14.0 - 18.0 G/DL) 12.0 L Hct (42 - 52 %) 34.8 L MCV (80.0 - 94.0 FL) 84.1 MCH (27.0 - 31.0 PG) 29.0 RDW (11.5 - 14.5 %) 16.4 H Plt Count (130 - 400 /CUMM) 220 MPV (7.4 - 10.4 FL) 9.6 Gran % (42.2 - 75.2 %) 76.4 H Lymphocytes % (20.5 - 51.1 %) 16.5 L Monocytes % (1.7 - 9.3 %) 6.6 Eosinophils % (0 - 5 %) 0.2 Basophils % (0.0 - 2.0 %) 0.3 Absolute Granulocytes (1.4 - 6.5 /CUMM) 9.5 H Absolute Lymphocytes (1.2 - 3.4 /CUMM) 2.1 Absolute Monocytes (0.10 - 0.60 /CUMM) 0.8 H Absolute Eosinophils (0.0 - 0.7 /CUMM) 0 Absolute Basophils (0.0 - 0.2 /CUMM) 0 PUBS MCHC (33.0 - 37.0 G/DL) 34.5 Assessment/Plan Assessment/Plan This is 82 year-old male with a history of dm, htn, hld, and afib, is POD#2 s/p L SMITHA, required sitter overnight for reported confusion tolerating diet pain controlled dressing changed continue PT safety monitor ordered eliquis - dvt ppx bowel regime in place str planning for tomorrow f/u medical consult recommendations will d/w Core Measures Venous Thromboembolism VTE Risk Factors Surgery No Mechanical VTE Prophylaxis d/t N/A MechProphylax Ordered No VTE Pharm Prophylaxis d/t NA PharmProphylax ordered
--- NOTE | 2017-09-24 09:17 | PN- Medicine Consult ---
Vinnie FROST,Kirill 09/24/17 0916: Assessment/Plan Assessment/Plan Assessment: ASSESSMENT:This is an 82-year-old gentleman with past medical history significant for atrial fibrillation, hypertension, diabetes, BPH, hyperlipidemia who is admitted to the surgical service for planned left total hip arthroplasty secondary to primary osteoarthritis. Medicine consult placed for co-management for his co-morbid medical conditions. This is POD#2. PLAN: Positive UC: His UC from OR growing >100,000 GNR. Pt was apparently confused overnight. He has a sitter at bedside this AM. A repeat UA and UC are pending. Tmax 98.3 and no labs available at time to eval for WBC. Pt states that he has no urinary symptoms other than "urinating a lot" but he says that this has been an issue since he started Lasix. He endorses one episode of hematuria after first void post-aguilar removal. The aid did not notice any blood in urine today. He denies any urgency, burning, itching or hesitation. * Pending UA/UC * Pending CBC * If pt does spike a fever and/or has elevated WBC then given his new onset confusion and >100,000 GNR CFU in previous UC will empirically start pt on abx. Will follow for recs. Note pt has NKDA. Hypertension: Patient has BP 110/58-132/80 in last 24 hrs. Note that JNC 8 does allow more lax BP control in pts over age 60. Permissible BP up to 150 systolic. I have called his daughter and verified his medication list. His BP regimen consists of Amlodipine 10 and Losartan 10 in addition to Lasix 40 BID. He is also on Doxazosin for BPH. As his BP has remained aggressively controlled on multiple readings for two days, will slowly scale back at this time. Note that his BP has been aggressively controlled and he isn't even getting his full home dose of 40mg BID Lasix. He is getting 20mg BID since yesterday. * Change Amlodipine 10 mg daily to 5mg daily * Con't Losartan 100 mg * Home dose is PO Lasix 40mg bid. 20mg BID is ordered for today. Once scaling back on Amlodipine consider restarting his home Lasix dose. Atrial fibrillation: Patient has history of A. fib status post unsuccessful cardioversion. He is currently on 5 mg of Eliquis twice a day. * Con't Eliquis 5mg BID BPH: * Con't Doxizosin 1mg daily DM: Last A1c in 2016 at 8.0. Last FS 184, 237, 174, 138. Goal BS in hospital around 140-180. It looks like his highest readings seem to be around midnight. His current insulin scale is a TIDAC scale, at this time would add a low dose night time scale as well as long as pt is eating and not confused. * Continue daytime highdose TIDAC RISS * Start lowest dose night time HS scale * FS * Diabetic diet * He was restarted on Metformin 1000mg po BID Other supplements: Pt is on Mag 500mg daily, B12, and Vit D at home. These can be resumed. Diabetic diet Plan: see above Subjective Subjective: Saw pt at bedside his AM. He has a sitter at bedside. Pt was apparently confused overnight. This AM he seemed A0X3. His daughter Jenny came in and seemed to think that he was at baseline. UC +>[id number] CFU GNR. Otherwise no othe acute overnight events. Pt remains in good spirits this am. He walked to the bathroom with assist and is urinating well, passing flatus and had a BM this morning. Review of Systems Constitutional: Denies: chills, fever, weakness. EENTM: Reports: no symptoms. Cardiovascular: Denies: chest pain, palpitations. Respiratory: Denies: short of breath. Gastrointestinal: Denies: abdominal pain, constipation, vomiting. Genitourinary: Reports: frequency, hematuria. Denies: discharge, dysuria, hesitation, pain. Objective Last 24 Hrs of Vital Signs/I&O Vital Signs Date Time Temp Pulse Resp B/P B/P Pulse O2 O2 Flow FiO2 Mean Ox Delivery Rate 09/24 0635 98.1 80 18 132/66 92 Room Air 09/23 2231 98.3 67 19 110/60 95 Room Air 09/23 1454 98.1 60 20 110/58 96 Room Air 09/23 1030 98.0 70 20 122/78 97 Room Air Intake & Output 09/24 1600 09/24 0800 09/24 0000 Intake Total 300 Output Total 650 550 Balance -650 -250 Intake, Oral 300 Output, Urine 650 550 Physical Exam General Appearance: well developed/nourished, no apparent distress, alert, awake , comfortable Head: atraumatic, normal appearance Ears, Nose, Throat: normal pharynx, normal ENT inspection Neck: normal inspection Cardiovascular: irregularly irregular Respiratory: normal breath sounds, chest non-tender, no respiratory distress Abdomen: soft, non-tender Extremities: LLE with bandage at hip. some soiling of bandage but it is otherwise intact. Lizzy FROST,Sushma 09/24/17 1335: Objective Current Medications: Current Medications Sig/Becca Start time Last Medication Dose Route Stop Time Status Admin Al Hydroxide/Mg 30 ML Q6P PRN 09/22 1215 AC Hydroxide PO Amlodipine Besylate 10 MG DAILY 09/23 1000 AC 09/24 PO 1040 Apixaban 5 MG BID 09/23 1000 AC 09/24 PO 1040 Atorvastatin Calcium 10 MG 1700 09/23 1700 AC 09/23 PO 1652 Bisacodyl 10 MG DAILY NEEDED PRN 09/24 0900 AC DC Celecoxib 400 MG DAILY 09/23 1000 DC 09/23 PO 0748 Docusate Sodium 100 MG BID 09/24 1000 AC 09/24 PO 1038 Docusate Sodium 100 MG DAILY NEEDED PRN 09/22 1215 DC 09/23 PO 0748 Doxazosin Mesylate 1 MG DAILY 09/22 1530 AC 09/24 PO 1041 Furosemide 20 MG BID 09/22 2200 AC 09/24 PO 1038 Hydrocodone Bitart/ 1 TAB Q6P PRN 09/22 1215 AC 09/23 Acetaminophen PO 0151 Hydrocodone Bitart/ 2 TAB Q6P PRN 09/22 1215 AC 09/24 Acetaminophen PO 0255 Insulin Aspart 0 AT BEDTIME 09/22 2200 AC 09/22 SC 2047 Insulin Aspart 0 TIDAC 09/22 1700 AC 09/24 SC 1037 Lorazepam 0.5 MG Q4P PRN 09/23 2345 AC 09/24 IV 0255 Losartan Potassium 100 MG DAILY 09/23 1000 AC 09/24 PO 1040 Metformin HCl 1,000 MG BID 09/22 2200 AC 09/24 PO 1038 Morphine Sulfate 2 MG Q3P PRN 09/22 1215 AC IV Morphine Sulfate 4 MG Q3P PRN 09/22 1215 AC IV Omeprazole 20 MG DAILY AC 09/24 0700 AC 09/24 PO 0701 Ondansetron HCl 4 MG Q6P PRN 09/22 1215 AC IV Polyethylene Glycol 17 GM DAILY NEEDED PRN 09/22 1215 AC PO Senna/Docusate Sodium 2 TAB AT BEDTIME NEED.. 09/22 1215 AC PO Sodium Chloride 1,000 ML Q13H 09/24 1330 UNVr IV 09/25 0229 Results Last 24 Hrs Lab/Bulmaro Results: Laboratory Tests 09/24/17 1300: Urine Color Pending, Urine Clarity Pending, Urine pH Pending, Ur Specific [place] Pending, Urine Protein Pending, Urine Ketones Pending, Urine Nitrite Pending, Urine Bilirubin Pending, Urine Urobilinogen Pending, Ur Leukocyte Esterase Pending, Ur Microscopic Pending, Urine Hemoglobin Pending, Urine Glucose Pending 09/24/17 1000: Anion Gap 9, Estimated GFR > 60, BUN/Creatinine Ratio 29.1 H, CBC w Diff NO MAN DIFF REQ, RBC 3.87 L, MCV 84.4, MCH 28.9, RDW 15.9 H, MPV 9.2, Gran % 77.8 H, Lymphocytes % 14.6 L, Monocytes % 6.7, Eosinophils % 0.8, Basophils % 0.1, Absolute Granulocytes 8.5 H, Absolute Lymphocytes 1.6, Absolute Monocytes 0.7 H, Absolute Eosinophils 0.1, Absolute Basophils 0, PUBS MCHC 34.3 Microbiology 09/24 1300 URINE ROUT: Urine Culture - RECD Attending MD Review Statement Attending Sign Off Attending Cosign Statement: I have: examined this patient, [facility] data, personally reviewd images, discussed mgmt plan w/elfego, discussed mgmt plan w/pt. Other Findings: Overnight events noted. Patient became very confused and required a sitter. He is much better now and more awake and alert. He denies any burning or pain when passing urine and says ever since he takes Lasix he urinates a lot. When the resident saw him his pressure was in the low side at 110/70 and she was worried that we were giving him all his blood pressure medicines with the low blood pressure however now he is normotensive and he already got his Norvasc, losartan and will get his Doxazosin in the evening. His urine culture done from the OR is showing gram-negative rods but I believe this is asymptomatic bacteriuria. Will follow up on the UA done today. If the UA doesn't have many white cells and given that the patient doesn't have a fever or his white count is not elevated, I don't think we need to treat. If the UA does have significant pyuria then I think we are obligated to treat him with IV ceftriaxone.
[2017-09-24 10:21] LABS: ABSOLUTE BASOPHIL COUNT 0 /CUMM (0.0-0.2); ABSOLUTE EOSINOPHIL COUNT 0.1 /CUMM (0.0-0.7); ABSOLUTE GRANULOCYTE CT 8.5 /CUMM (1.4-6.5); ABSOLUTE LYMPH COUNT 1.6 /CUMM (1.2-3.4); ABSOLUTE MONOCYTE COUNT 0.7 /CUMM (0.10-0.60); BASOPHIL % 0.1 % (0.0-2.0); EOSINOPHIL % 0.8 % (0-5); GRANULOCYTE % 77.8 % (42.2-75.2); HEMATOCRIT 32.6 % (42-52); MEAN CORPUSCULAR HGB 28.9 PG (27.0-31.0); MEAN CORPUSCULAR HGB CONC 34.3 G/DL (33.0-37.0); MEAN CORPUSCULAR VOLUME 84.4 FL (80.0-94.0); MEAN PLATELET VOLUME 9.2 FL (7.4-10.4); PLATELET COUNT 198 /CUMM (130-400); RBC DISTRIBUTION WIDTH 15.9 % (11.5-14.5); RED BLOOD CELL CT 3.87 /CUMM (4.70-6.10); WHITE BLOOD CELL COUNT 10.9 /CUMM (4.8-10.8)
[2017-09-24 14:07] VITALS: BP 118/64
[2017-09-24 22:22] VITALS: BP 120/60
[2017-09-25 07:16] VITALS: BP 122/64
[2017-09-25 08:06] LABS: ABSOLUTE BASOPHIL COUNT 0 /CUMM (0.0-0.2); ABSOLUTE EOSINOPHIL COUNT 0.2 /CUMM (0.0-0.7); ABSOLUTE GRANULOCYTE CT 7.1 /CUMM (1.4-6.5); ABSOLUTE LYMPH COUNT 1.9 /CUMM (1.2-3.4); ABSOLUTE MONOCYTE COUNT 0.8 /CUMM (0.10-0.60); BASOPHIL % 0.3 % (0.0-2.0); EOSINOPHIL % 2.4 % (0-5); GRANULOCYTE % 70.4 % (42.2-75.2); HEMATOCRIT 31.4 % (42-52); MEAN CORPUSCULAR HGB 29.1 PG (27.0-31.0); MEAN CORPUSCULAR HGB CONC 34.2 G/DL (33.0-37.0); MEAN CORPUSCULAR VOLUME 85.2 FL (80.0-94.0); MEAN PLATELET VOLUME 9.9 FL (7.4-10.4); PLATELET COUNT 195 /CUMM (130-400); RBC DISTRIBUTION WIDTH 15.9 % (11.5-14.5); RED BLOOD CELL CT 3.68 /CUMM (4.70-6.10); WHITE BLOOD CELL COUNT 10.1 /CUMM (4.8-10.8)
[2017-09-25 11:39] VITALS: BP 120/58
--- NOTE | 2017-09-25 14:45 | PN- Att Addend ---
Attending Addendum Attending Brief Note S: The patient is s/p left hip arthroplasty. Has no specific complaints. Growing GNR in urine, however no significant pyuria. Mental status improved. O: VS: Vital Signs Date Time Temp Pulse Resp B/P B/P Pulse O2 O2 Flow FiO2 Mean Ox Delivery Rate 09/25 1712 98.5 67 20 134/58 94 Room Air 09/25 1549 99.2 68 20 120/60 97 Room Air 09/25 1139 99.2 65 20 120/58 96 Room Air 09/25 0927 70 130/62 09/25 0927 70 130/62 09/25 0716 99.1 67 20 122/64 95 09/24 2222 98.8 68 20 120/60 96 Room Air Intake & Output 09/25 1600 09/25 0800 09/25 0000 Intake Total 600 120 240 Output Total 350 250 425 Balance 250 -130 -185 Intake, Oral 600 120 240 Number 1 Bowel Movements Output, Urine 350 250 425 Current Medications Sig/Becca Start time Last Medication Dose Route Stop Time Status Admin Al Hydroxide/Mg 30 ML Q6P PRN 09/22 1215 AC Hydroxide PO Amlodipine Besylate 5 MG DAILY 09/25 1000 AC PO Amlodipine Besylate 10 MG DAILY 09/23 1000 DC 09/25 PO 0927 Apixaban 5 MG BID 09/23 1000 AC 09/25 PO 0926 Atorvastatin Calcium 10 MG 1700 09/23 1700 AC 09/25 PO 1704 Bisacodyl 10 MG DAILY NEEDED PRN 09/24 0900 AC NC Cholecalciferol 400 IU DAILY 09/25 1000 AC 09/25 PO 1228 Cyanocobalamin 1,000 MCG DAILY 09/25 1000 AC 09/25 PO 1228 Docusate Sodium 100 MG BID 09/24 1000 AC 09/25 PO 0926 Doxazosin Mesylate 1 MG DAILY 09/22 1530 AC 09/25 PO 0926 Furosemide 40 MG BID 09/26 1000 AC PO Furosemide 20 MG BID 09/22 2200 AC 09/25 PO 09/26 0000 0927 Hydrocodone Bitart/ 1 TAB Q6P PRN 09/22 1215 AC 09/25 Acetaminophen PO 0518 Hydrocodone Bitart/ 2 TAB Q6P PRN 09/22 1215 AC 09/24 Acetaminophen PO 0255 Insulin Aspart 0 AT BEDTIME 09/22 2200 AC 09/24 SC 2254 Insulin Aspart 0 TIDAC 09/22 1700 AC 09/25 SC 1704 Lorazepam 0.5 MG Q4P PRN 09/23 2345 AC 09/24 IV 0255 Losartan Potassium 100 MG DAILY 09/23 1000 AC 09/25 PO 0927 Magnesium Oxide 400 MG BID 09/25 1000 AC 09/25 PO 1228 Metformin HCl 1,000 MG BID 09/22 2200 AC 09/25 PO 0926 Morphine Sulfate 2 MG Q3P PRN 09/22 1215 AC IV Morphine Sulfate 4 MG Q3P PRN 09/22 1215 AC IV Omeprazole 20 MG DAILY AC 09/24 0700 AC 09/25 PO 0518 Ondansetron HCl 4 MG Q6P PRN 09/22 1215 AC IV Polyethylene Glycol 17 GM DAILY NEEDED PRN 09/22 1215 AC PO Senna/Docusate Sodium 2 TAB AT BEDTIME NEED.. 09/22 1215 AC PO Sodium Chloride 1,000 ML Q13H 09/24 1330 DC 09/24 IV 09/25 0229 1759 Physical Exam: Chest: clear Cor: irreg rhythm, nl rate, nl S1, S2 w/o murm Abd: BS+, soft, NT Ext: LLE - s/p hip, no significant edema Labs: Laboratory Tests 09/25/17 0615: Anion Gap 10, Estimated GFR > 60, BUN/Creatinine Ratio 30.0 H, CBC w Diff NO MAN DIFF REQ, RBC 3.68 L, MCV 85.2, MCH 29.1, RDW 15.9 H, MPV 9.9, Gran % 70.4 , Lymphocytes % 18.6 L, Monocytes % 8.3, Eosinophils % 2.4, Basophils % 0.3, Absolute Granulocytes 7.1 H, Absolute Lymphocytes 1.9, Absolute Monocytes 0.8 H, Absolute Eosinophils 0.2, Absolute Basophils 0, PUBS MCHC 34.2 09/24/17 1300: Urine Color YEL, Urine Clarity CLEAR, Urine pH 6.0, Ur Specific [place] 1.025, Urine Protein 30 H, Urine Ketones NEG, Urine Nitrite NEG, Urine Bilirubin NEG, Urine Urobilinogen 0.2, Ur Leukocyte Esterase TRACE H, Ur Microscopic SEDIMENT EXAMINED, Urine RBC 3-5, Urine WBC 1-3 H, Ur Epithelial Cells FEW, Urine Bacteria FEW H, Urine Hemoglobin MOD H, Urine Glucose 250 H 09/24/17 1000: Anion Gap 9, Estimated GFR > 60, BUN/Creatinine Ratio 29.1 H, CBC w Diff NO MAN DIFF REQ, RBC 3.87 L, MCV 84.4, MCH 28.9, RDW 15.9 H, MPV 9.2, Gran % 77.8 H, Lymphocytes % 14.6 L, Monocytes % 6.7, Eosinophils % 0.8, Basophils % 0.1, Absolute Granulocytes 8.5 H, Absolute Lymphocytes 1.6, Absolute Monocytes 0.7 H, Absolute Eosinophils 0.1, Absolute Basophils 0, PUBS MCHC 34.3 Microbiology Date/Time Procedure - Status Source Growth 09/24 1300 Urine Culture - RES URINE ROUT Impression/Plan: #+Urine Culture- no WBC/fever/pyuria- ? asymptomatic bacteruria. Plan: Will monitor for symptoms. #HTN- BP as above. Plan: Continue Amlodipine/Losartan/Lasix- at lower dose. Will restart Lasix tomorrow with home dose. #DM2- glu 151 - improved. Back on Metformin. Plan: Continue to follow on Metformin. #Mental Status Changes/Delirium- most likely related to meds (narcotics/benzo). Doing well at present. Plan: Minimize narcotics and hold benzos.
--- NOTE | 2017-09-25 15:10 | PN- Orthopedic ---
Surgical Brief Attending Note Brief Attending Note: Patient seen and examined this morning. Sitting in a chair, denies chest pain, shortness of breath, fevers/chills, or nausea. Pain is controlled; says his left hip and leg feel "sore". No issues over night. Sitting at bedside. Vital signs stable; afebrile, WBC count 10.1 1st urine culture - E.coli; 2nd urine culture - no growth to date Exam: Alert, oriented, no distress. Answers questions appropriately. Left Lower Extremity: Dressing to left hip intact, bloody drainage noted Mild tenderness to palpation of hip and thigh. No calf pain. Intact ankle DF/PF SILT over left lower leg and foot. SCDs in place bilaterally. 82yo M POD#3 L SMITHA; disoriented on POD#2 with concern for UTI however no fevers and no elevated WBC count, mental status has improved. Appreciate medicine's evaluation of this patient. 1. WBAT LLE 2. Limit narcotics; pain control 3. Eliquis and SCDs for DVT prophylaxis 4. Out of bed with PT 5. Appreciate Medicine's evaluation of this patient. 6. Discharge planning 7. Dressing change by surgical PA after patient works with PT.
[2017-09-25 15:49] VITALS: BP 120/60
[2017-09-25 17:12] VITALS: BP 134/58
[2017-09-25 23:25] VITALS: BP 134/69
[2017-09-26 01:59] VITALS: BP 136/56
[2017-09-26 05:55] VITALS: BP 130/62
--- NOTE | 2017-09-26 10:01 | PN- Orthopedic ---
See Addendum Subjective Subjective: OOB in chair No specific complaints Ambulating with PT - cleared for dc to rehab - awaiting bed Pain is tolerable with meds Objective Vital Signs and I&Os Vital Signs Date Time Temp Pulse Resp B/P B/P Pulse O2 O2 Flow FiO2 Mean Ox Delivery Rate 09/26 0555 98.0 66 20 130/62 95 09/26 0159 98.1 68 20 136/56 96 09/25 2325 98.1 70 20 134/69 09/25 1712 98.5 67 20 134/58 94 Room Air 09/25 1549 99.2 68 20 120/60 97 Room Air 09/25 1139 99.2 65 20 120/58 96 Room Air Intake & Output 09/26 1600 09/26 0800 09/26 0000 09/25 1600 09/25 0800 09/25 0000 Intake Total 720 600 120 240 Output Total 200 350 250 425 Balance 520 250 -130 -185 Intake, Oral 720 600 120 240 Number 1 Bowel Movements Output, Urine 200 350 250 425 Physical Exam: VSS, afebrile General: alert and oriented times three Chest: clear anteriorly bilaterally Abd; soft, good bs Ext: warm, no edema, normosensate, good 5\5 CAROLYN BLE Wound: looks good, dressing changed, no erythema or drainage Current Medications: Current Medications Sig/Becca Start time Last Medication Dose Route Stop Time Status Admin Al Hydroxide/Mg 30 ML Q6P PRN 09/22 1215 AC Hydroxide PO Amlodipine Besylate 5 MG DAILY 09/25 1000 AC PO Apixaban 5 MG BID 09/23 1000 AC 09/25 PO 2107 Atorvastatin Calcium 10 MG 1700 09/23 1700 AC 09/25 PO 1704 Bisacodyl 10 MG DAILY NEEDED PRN 09/[address] Cholecalciferol 400 IU DAILY 09/25 1000 AC 09/25 PO 1228 Cyanocobalamin 1,000 MCG DAILY 09/25 1000 AC 09/25 PO 1228 Docusate Sodium 100 MG BID 09/24 1000 AC 09/25 PO 2107 Doxazosin Mesylate 1 MG DAILY 09/22 1530 AC 09/25 PO 0926 Furosemide 40 MG BID 09/26 1000 AC PO Furosemide 20 MG BID 09/22 2200 DC 09/25 PO 09/26 0000 2107 Hydrocodone Bitart/ 1 TAB Q6P PRN 09/22 1215 AC 09/25 Acetaminophen PO 0518 Hydrocodone Bitart/ 2 TAB Q6P PRN 09/22 1215 AC 09/24 Acetaminophen PO 0255 Insulin Aspart 0 AT BEDTIME 09/22 2200 AC 09/24 SC 2254 Insulin Aspart 0 TIDAC 09/22 1700 AC 09/26 SC 0811 Lorazepam 0.5 MG Q4P PRN 09/23 2345 AC 09/24 IV 0255 Losartan Potassium 100 MG DAILY 09/23 1000 AC 09/25 PO 0927 Magnesium Oxide 400 MG BID 09/25 1000 AC 09/25 PO 2108 Metformin HCl 1,000 MG BID 09/22 2200 AC 09/25 PO 2108 Morphine Sulfate 2 MG Q3P PRN 09/22 1215 AC IV Morphine Sulfate 4 MG Q3P PRN 09/22 1215 AC IV Omeprazole 20 MG DAILY AC 09/24 0700 AC 09/26 PO 0708 Ondansetron HCl 4 MG Q6P PRN 09/22 1215 AC IV Polyethylene Glycol 17 GM DAILY NEEDED PRN 09/22 1215 AC PO Senna/Docusate Sodium 2 TAB AT BEDTIME NEED.. 09/22 1215 AC PO Assessment/Plan Assessment/Plan 82yo male s/p L SMITHA awaiting rehab placement discussed with case management hopefully bed will be available today but it may be tomorrow continue current care continue PT - WBAT eliquis for dvt ppx second urine culture ngsf Core Measures Venous Thromboembolism VTE Risk Factors Surgery No Mechanical VTE Prophylaxis d/t N/A MechProphylax Ordered No VTE Pharm Prophylaxis d/t NA PharmProphylax ordered
[2017-09-26 15:45] VITALS: BP 126/58
--- NOTE | 2017-09-26 19:49 | PN- Att Addend ---
Attending Addendum Attending Brief Note S: The patient was in good spirits today. Describes some mild abdominal discomfort, however eating well. Small BM today. O: VS: Vital Signs Date Time Temp Pulse Resp B/P B/P Pulse O2 O2 Flow FiO2 Mean Ox Delivery Rate 09/26 1545 98.9 69 20 126/58 96 Room Air 09/26 1013 72 130/62 09/26 1012 72 130/62 09/26 0555 98.0 66 20 130/62 95 09/26 0159 98.1 68 20 136/56 96 09/25 2325 98.1 70 20 134/69 Intake & Output 09/26 1600 09/26 0800 09/26 0000 Intake Total 700 720 Output Total 400 200 Balance 300 520 Intake, Oral 700 720 Output, Urine 400 200 Current Medications Sig/Becca Start time Last Medication Dose Route Stop Time Status Admin Al Hydroxide/Mg 30 ML Q6P PRN 09/22 1215 AC Hydroxide PO Amlodipine Besylate 5 MG DAILY 09/25 1000 AC 09/26 PO 1012 Apixaban 5 MG BID 09/23 1000 AC 09/26 PO 1013 Atorvastatin Calcium 10 MG 1700 09/23 1700 AC 09/26 PO 1716 Bisacodyl 10 MG DAILY NEEDED PRN 09/24 0900 AC CA Cholecalciferol 400 IU DAILY 09/25 1000 AC 09/26 PO 1014 Cyanocobalamin 1,000 MCG DAILY 09/25 1000 AC 09/26 PO 1014 Docusate Sodium 100 MG BID 09/24 1000 AC 09/26 PO 1013 Doxazosin Mesylate 1 MG DAILY 09/22 1530 AC 09/26 PO 1012 Furosemide 40 MG BID 09/26 1000 AC 09/26 PO 1013 Furosemide 20 MG BID 09/22 2200 DC 09/25 PO 09/26 0000 2107 Hydrocodone Bitart/ 1 TAB Q6P PRN 09/22 1215 AC 09/25 Acetaminophen PO 0518 Hydrocodone Bitart/ 2 TAB Q6P PRN 09/22 1215 AC 09/24 Acetaminophen PO 0255 Insulin Aspart 0 AT BEDTIME 09/22 2200 AC 09/24 SC 2254 Insulin Aspart 0 TIDAC 09/22 1700 AC 09/26 SC 1715 Lorazepam 0.5 MG Q4P PRN 09/23 2345 AC 09/24 IV 0255 Losartan Potassium 100 MG DAILY 09/23 1000 AC 09/26 PO 1013 Magnesium Oxide 400 MG BID 09/25 1000 AC 09/26 PO 1014 Metformin HCl 1,000 MG BID 09/22 2200 AC 09/26 PO 1013 Morphine Sulfate 2 MG Q3P PRN 09/22 1215 AC IV Morphine Sulfate 4 MG Q3P PRN 09/22 1215 AC IV Omeprazole 20 MG DAILY AC 09/24 0700 AC 09/26 PO 0708 Ondansetron HCl 4 MG Q6P PRN 09/22 1215 AC IV Polyethylene Glycol 17 GM DAILY NEEDED PRN 09/22 1215 AC PO Senna/Docusate Sodium 2 TAB AT BEDTIME NEED.. 09/22 1215 AC PO Physical Exam: Chest: clear Cor: irreg rhythm, nl rate, nl S1, S2 w/o murm Abd: BS+, soft, NT Ext: LLE - s/p hip, no significant edema Labs: None x 24 hours Impression/Plan: #Abdominal Discomfort- mild- exam is benign. ? mild constipation. Plan: Bowel regimen. #+Urine Culture- no WBC/fever/pyuria- ? asymptomatic bacteruria. Plan: Will monitor for symptoms. #HTN- BP as above. Plan: Continue Amlodipine/Losartan/Lasix. #DM2- glu 184. Back on Metformin. Plan: Continue to follow on Metformin. #Mental Status Changes/Delirium- most likely related to meds (narcotics/benzo). Doing well at present. In good spirits. Plan: Minimize narcotics and hold benzos.
[2017-09-26 22:54] VITALS: BP 112/52
[2017-09-27 07:22] VITALS: BP 124/66
--- NOTE | 2017-09-27 08:23 | PN- Orthopedic ---
Subjective Subjective: Pt in bed, minimal pain controlled with Vicodin. Tolerating regular diet. Ambulating with PT. Voiding Denies fevers. Denies CP/SOB Objective Vital Signs and I&Os Vital Signs Date Time Temp Pulse Resp B/P B/P Pulse O2 O2 Flow FiO2 Mean Ox Delivery Rate 09/27 721 97.6 68 20 124/66 96 Room Air 09/26 2254 99.1 65 20 112/52 96 Room Air 09/26 1545 98.9 69 20 126/58 96 Room Air 09/26 1013 72 130/62 09/26 1012 72 130/62 Intake & Output 09/27 1600 09/27 0800 09/27 0000 09/26 1600 09/26 0800 09/26 0000 Intake Total 720 700 720 Output Total 350 200 400 200 Balance -350 520 300 520 Intake, Oral 720 700 720 Number 0 Bowel Movements Output, Urine 350 200 400 200 Physical Exam: gen: NAD. AAx3 resp:CTAB cardio: RRR abd: ND, +BS, nontender ext: left hip dressing with some serous drainage through ABD. dressing changed. left hip would with campbell in place, surrounding erythema most prominent at superior aspect of wound, warm at op site. Unable to express drainage. Distal sensation intact. 2+PT, 2+DP Superficial wound over left anterior fink covered with dressing Results Last 48 Hours of Labs: Laboratory Tests 09/27 925 Hematology CBC w Diff NO MAN DIFF REQ WBC (4.8 - 10.8 /CUMM) 8.4 RBC (4.70 - 6.10 /CUMM) 4.00 L Hgb (14.0 - 18.0 G/DL) 11.3 L Hct (42 - 52 %) 34.3 L MCV (80.0 - 94.0 FL) 85.6 MCH (27.0 - 31.0 PG) 28.3 RDW (11.5 - 14.5 %) 16.0 H Plt Count (130 - 400 /CUMM) 282 MPV (7.4 - 10.4 FL) 8.7 Gran % (42.2 - 75.2 %) 69.2 Lymphocytes % (20.5 - 51.1 %) 17.9 L Monocytes % (1.7 - 9.3 %) 7.3 Eosinophils % (0 - 5 %) 5.3 H Basophils % (0.0 - 2.0 %) 0.3 Absolute Granulocytes (1.4 - 6.5 /CUMM) 5.8 Absolute Lymphocytes (1.2 - 3.4 /CUMM) 1.5 Absolute Monocytes (0.10 - 0.60 /CUMM) 0.6 Absolute Eosinophils (0.0 - 0.7 /CUMM) 0.4 Absolute Basophils (0.0 - 0.2 /CUMM) 0 PUBS MCHC (33.0 - 37.0 G/DL) 33.0 Assessment/Plan Assessment/Plan A/P: 82yo M POD#5 L SMITHA. Question possible infection at op-site WBC-8, Dr. Dao does not want ABX at this time Local wound care to anterior fink Out of bed with PT, WBAT Left hip Pain control Eliquis and SCDs for DVT prophylaxis Regular diet Awaiting bed at rehab facility, likely discharge to rehab tomorrow Core Measures Venous Thromboembolism VTE Risk Factors Surgery No Mechanical VTE Prophylaxis d/t N/A MechProphylax Ordered No VTE Pharm Prophylaxis d/t NA PharmProphylax ordered
[2017-09-27 09:48] LABS: ABSOLUTE BASOPHIL COUNT 0 /CUMM (0.0-0.2); ABSOLUTE EOSINOPHIL COUNT 0.4 /CUMM (0.0-0.7); ABSOLUTE GRANULOCYTE CT 5.8 /CUMM (1.4-6.5); ABSOLUTE LYMPH COUNT 1.5 /CUMM (1.2-3.4); ABSOLUTE MONOCYTE COUNT 0.6 /CUMM (0.10-0.60); BASOPHIL % 0.3 % (0.0-2.0); EOSINOPHIL % 5.3 % (0-5); GRANULOCYTE % 69.2 % (42.2-75.2); HEMATOCRIT 34.3 % (42-52); MEAN CORPUSCULAR HGB 28.3 PG (27.0-31.0); MEAN CORPUSCULAR VOLUME 85.6 FL (80.0-94.0); MEAN PLATELET VOLUME 8.7 FL (7.4-10.4); PLATELET COUNT 282 /CUMM (130-400); WHITE BLOOD CELL COUNT 8.4 /CUMM (4.8-10.8)
--- NOTE | 2017-09-27 11:47 | PN- Medicine Consult ---
Vinnie FRSOT,Kirill 09/27/17 1147: Assessment/Plan Assessment/Plan Assessment: ASSESSMENT:This is an 82-year-old gentleman with past medical history significant for atrial fibrillation, hypertension, diabetes, BPH, hyperlipidemia who is admitted to the surgical service for planned left total hip arthroplasty secondary to primary osteoarthritis. Medicine consult placed for co-management for his co-morbid medical conditions. POD 5. Pt was supposed to be d/c today for rehab but his surgical site was found to be erythematous and some drainage today. Currently eval for surgical site infection. Dispo pending work up. PLAN: Surgical site erythema: For past two nights pt has had low grade elevations in temp with Tmax 99.2 and 99.1 respectively. Otherwise afebrile. Note he is getting vicodin for pain. WBC nml at 8.4. * Will defer to surgery regarding managment of surgical site. Positive UC: Treating as asymptomatic bacteruria. No abx at this time. Hypertension: Patient has BPmax 154/78 in last 24 hrs. Note that JNC 8 does allow more lax BP control in pts over age 60. Permissible BP up to 150 systolic. * Continue curreng regimen Atrial fibrillation: Patient has history of A. fib status post unsuccessful cardioversion. He is currently on 5 mg of Eliquis twice a day. * Con't Eliquis 5mg BID BPH: * Con't Doxizosin 1mg daily DM: Last A1c in 2015 at 8.0. * Con't current Insulin reg * FS * Diabetic diet * Con't Metformin 1000mg po BID Other supplements: Pt is on Mag 500mg daily, B12, and Vit D at home. These can be resumed. FC Diabetic diet Plan: see above Subjective Subjective: Saw pt at bedside. no acute overnight events no complaints. Review of Systems Constitutional: Reports: no symptoms. Cardiovascular: Denies: chest pain, palpitations. Respiratory: Denies: cough, short of breath. Gastrointestinal: Denies: abdominal pain, constipation. Genitourinary: Reports: no symptoms. Musculoskeletal: Reports: no symptoms. Objective Last 24 Hrs of Vital Signs/I&O Vital Signs Date Time Temp Pulse Resp B/P B/P Pulse O2 O2 Flow FiO2 Mean Ox Delivery Rate 09/27 1449 98.3 61 20 112/63 97 Room Air 09/27 1356 97.6 74 20 154/78 09/27 1138 Room Air Room Air 09/27 1104 74 154/78 09/27 0722 97.6 68 20 124/66 96 Room Air 09/26 2254 99.1 65 20 112/52 96 Room Air 09/26 1545 98.9 69 20 126/58 96 Room Air Intake & Output 09/27 1600 09/27 0800 09/27 0000 Intake Total 720 Output Total 1 350 200 Balance -1 -350 520 Intake, Oral 720 Number 0 Bowel Movements Output, Stool 1 Output, Urine 350 200 Physical Exam General Appearance: well developed/nourished, no apparent distress, alert, awake Head: atraumatic, normal appearance Cardiovascular: irregularly irregular Respiratory: normal breath sounds, chest non-tender, no respiratory distress, quiet respiration, lungs clear Abdomen: soft, non-tender Extremities: LLE has bandage to hip. There is some surrounding erytehma but no evident fluid collection. area warm to touch. campbell in tact Current Medications: Current Medications Sig/Becca Start time Last Medication Dose Route Stop Time Status Admin Al Hydroxide/Mg 30 ML Q6P PRN 09/22 1215 AC Hydroxide PO Amlodipine Besylate 5 MG DAILY 09/25 1000 AC 09/27 PO 1105 Apixaban 5 MG BID 09/23 1000 AC 09/27 PO 1105 Atorvastatin Calcium 10 MG 1700 09/23 1700 AC 09/26 PO 1716 Bisacodyl 10 MG DAILY NEEDED PRN 09/24 0900 AC SC Cholecalciferol 400 IU DAILY 09/25 1000 AC 09/27 PO 1105 Cyanocobalamin 1,000 MCG DAILY 09/25 1000 AC 09/27 PO 1105 Docusate Sodium 100 MG BID 09/24 1000 AC 09/27 PO 1102 Doxazosin Mesylate 1 MG DAILY 09/22 1530 AC 09/27 PO 1102 Furosemide 40 MG BID 09/26 1000 AC 09/27 PO 1105 Hydrocodone Bitart/ 1 TAB Q6P PRN 09/22 1215 AC 09/26 Acetaminophen PO 2303 Hydrocodone Bitart/ 2 TAB Q6P PRN 09/22 1215 AC 09/24 Acetaminophen PO 0255 Insulin Aspart 0 AT BEDTIME 09/22 2200 AC 09/24 SC 2254 Insulin Aspart 0 TIDAC 09/22 1700 AC 09/27 SC 1312 Lorazepam 0.5 MG Q4P PRN 09/23 2345 AC 09/24 IV 0255 Losartan Potassium 100 MG DAILY 09/23 1000 AC 09/27 PO 1104 Magnesium Oxide 400 MG BID 09/25 1000 AC 09/27 PO 1105 Metformin HCl 1,000 MG BID 09/22 2200 AC 09/27 PO 1105 Morphine Sulfate 2 MG Q3P PRN 09/22 1215 AC IV Morphine Sulfate 4 MG Q3P PRN 09/22 1215 AC IV Omeprazole 20 MG DAILY AC 09/24 0700 AC 09/27 PO 0637 Ondansetron HCl 4 MG Q6P PRN 09/22 1215 AC IV Patient Medication 1 ED ONE ONE 09/27 1145 DC 09/27 Teaching ED 09/27 1146 1312 Polyethylene Glycol 17 GM DAILY NEEDED PRN 09/22 1215 AC PO Senna/Docusate Sodium 2 TAB AT BEDTIME NEED.. 09/22 1215 AC PO Results Last 24 Hrs Lab/Bulmaro Results: Laboratory Tests 09/27/17 0926: CBC w Diff NO MAN DIFF REQ, RBC 4.00 L, MCV 85.6, MCH 28.3, RDW 16.0 H, MPV 8.7, Gran % 69.2, Lymphocytes % 17.9 L, Monocytes % 7.3, Eosinophils % 5.3 H, Basophils % 0.3, Absolute Granulocytes 5.8, Absolute Lymphocytes 1.5, Absolute Monocytes 0.6, Absolute Eosinophils 0.4, Absolute Basophils 0, PUBS MCHC 33.0 Lizzy FROST,Sushma 09/27/17 1445: Attending MD Review Statement Attending Sign Off Attending Cosign Statement: I have: examined this patient, reviewed [facility] EMR data, personally reviewd images, discussd w/resident/PA/SPORTS TEACHER, discussed mgmt plan w/elfego, discussed mgmt plan w/CM, discussed mgmt plan w/pt. Other Findings: As per RN patient has some erythema over the surgical site and is having a lot of serous drainage at the area. He doesn't have an elevated white count but he does have a low-grade temp. Management of the wound will be as per surgery. He has underlying A. fib, hypertension, diabetes, likely chronic diastolic heart failure and he is status post total hip arthroplasty. Will follow closely
[2017-09-27 13:56] VITALS: BP 154/78
[2017-09-27 14:49] VITALS: BP 112/63
[2017-09-27 22:32] VITALS: BP 120/62
[2017-09-28 07:05] VITALS: BP 128/68
--- NOTE | 2017-09-28 07:09 | PN- Orthopedic ---
Subjective Subjective: Patient feeling well today, no acute events overnight, pain is controlled, no confusion, no fever or flulike illness Objective Vital Signs and I&Os Vital Signs Date Time Temp Pulse Resp B/P B/P Pulse O2 O2 Flow FiO2 Mean Ox Delivery Rate 09/27 2232 98.0 63 20 120/62 96 Room Air 09/27 1449 98.3 61 20 112/63 97 Room Air 09/27 1356 97.6 74 20 154/78 09/27 1138 Room Air Room Air 09/27 1104 74 154/78 09/27 0722 97.6 68 20 124/66 96 Room Air Intake & Output 09/28 0809/28 0000 09/27 1600 09/27 0809/27 0000 09/26 1600 Intake Total 240 480 500 720 700 Output Total 400 1 350 200 400 Balance 240 80 499 -350 520 300 Intake, Oral 240 480 500 720 700 Number 1 0 Bowel Movements Output, Stool 1 Output, Urine 400 350 200 400 Patient 273 lb Weight Physical Exam: Well-developed well-nourished no apparent distress. HEENT: Atraumatic, extraocular motion intact Neck: Supple, no lymphadenopathy Respiratory: No respiratory distress Extremities: Left lower extremity hip dressing in place, Dressing with minimal serous staining Incision with faint broad erythema, appears to be more reactive/inflammatory than infectious Moderate thigh swelling, induration noted along proximal thigh underneath incision, likely hematoma. No shortening or rotation Hip range of motion is limited and without unexpected pain Neurovascularly intact distally Bilateral calves are supple, nontender. Neuro: Alert and oriented x3 Psych: Mood affect normal, normal memory normal judgment. Skin: Warm and dry, no rash on exposed skin Results Last 48 Hours of Labs: Laboratory Tests 09/27 925 Hematology CBC w Diff NO MAN DIFF REQ WBC (4.8 - 10.8 /CUMM) 8.4 RBC (4.70 - 6.10 /CUMM) 4.00 L Hgb (14.0 - 18.0 G/DL) 11.3 L Hct (42 - 52 %) 34.3 L MCV (80.0 - 94.0 FL) 85.6 MCH (27.0 - 31.0 PG) 28.3 RDW (11.5 - 14.5 %) 16.0 H Plt Count (130 - 400 /CUMM) 282 MPV (7.4 - 10.4 FL) 8.7 Gran % (42.2 - 75.2 %) 69.2 Lymphocytes % (20.5 - 51.1 %) 17.9 L Monocytes % (1.7 - 9.3 %) 7.3 Eosinophils % (0 - 5 %) 5.3 H Basophils % (0.0 - 2.0 %) 0.3 Absolute Granulocytes (1.4 - 6.5 /CUMM) 5.8 Absolute Lymphocytes (1.2 - 3.4 /CUMM) 1.5 Absolute Monocytes (0.10 - 0.60 /CUMM) 0.6 Absolute Eosinophils (0.0 - 0.7 /CUMM) 0.4 Absolute Basophils (0.0 - 0.2 /CUMM) 0 PUBS MCHC (33.0 - 37.0 G/DL) 33.0 Assessment/Plan Assessment/Plan A/P: 82yo M POD#6 L SMITHA. Left proximal thigh and hip area faint erythema, fever inflammatory/reactive versus infection, no antibiotics unless signs and symptoms of worsening infection occur Out of bed with PT, WBAT Left hip Pain control Eliquis for DVT prophylaxis Regular diet Awaiting bed at rehab facility, likely discharge to rehab today Core Measures Venous Thromboembolism VTE Risk Factors Surgery No Mechanical VTE Prophylaxis d/t N/A MechProphylax Ordered No VTE Pharm Prophylaxis d/t NA PharmProphylax ordered
[2017-09-28 10:31] VITALS: BP 154/78
[2017-09-28] MEDS ORDERED: VITAMIN D3400 UNI1 PO (13:24)
[2017-09-28] MEDS ORDERED: AMLODIPINE BESY10 M1 PO (13:24)
[2017-09-28] MEDS ORDERED: LOSARTAN POTAS100 M1 PO (13:25)
[2017-09-28] MEDS ORDERED: METFORMIN HCL1000 M1 PO (13:28)
[2017-09-28] MEDS ORDERED: LOVASTATIN40 M1 PO (13:28)
== END 2017-09-28 15:12 | DRG 470 ==
LOC: DELPENDDIS → SDA 04:06 → 2NB 04:06 → ENRESERV 10:38 → ENTRNSPT 11:31 → EDTRNSPT 11:48 → EDTRNSPTSTS 11:48 → 2NB 11:56 → CMPTRNSPT 12:00 → ENPENDDIS 09-27 09:30 → 2NB 09-28 15:12
PROVIDERS: Physician Assistant; Physician Assistant Surgical
PROC: 0SRB04A Replacement of Left Hip Joint with Ceramic on Polyethylene Synthetic Substitute, Uncemented, Open Approach (ICD-10-PCS; principal; 2017-09-22)
DX: M16.12 Unilateral primary osteoarthritis, left hip (principal); E11.8 Type 2 diabetes mellitus with unspecified complications; I48.91 Unspecified atrial fibrillation; I50.32 Chronic diastolic (congestive) heart failure; I11.0 Hypertensive heart disease with heart failure; Z79.84 Long term (current) use of oral hypoglycemic drugs; Z79.01 Long term (current) use of anticoagulants; N40.0 Benign prostatic hyperplasia without lower urinary tract symptoms; E78.5 Hyperlipidemia, unspecified; I87.2 Venous insufficiency (chronic) (peripheral); Z96.653 Presence of artificial knee joint, bilateral; R41.0 Disorientation, unspecified; T40.605A Adverse effect of unspecified narcotics, initial encounter; T42.4X5A Adverse effect of benzodiazepines, initial encounter; Y92.239 Unspecified place in hospital as the place of occurrence of the external cause
CPT/HCPCS: 36415; 73501; 81001; 82436; 87086; 97110-GO; 97116-GO; 97161-GP; 97530-GO; J1100; J2060; J2405; J3370; J3490; J7040

== ENCOUNTER 2018-02-17 09:53 | Observation (INO) | payer OTHER, MEDICARE ==
[~2018-02-17] VITALS: Ht 185.4 cm; Wt 127.0 kg
[~2018-02-17 09:53] MED LIST changes: +AMLODIPINE BESY10 M1 PO; +ELIQUIS5 M1 PO; +HYDROCODON-ACE1 EAC2 PO; +LOSARTAN POTAS100 M1 PO; +LOVASTATIN40 M1 PO; +METFORMIN HCL1000 M1 PO; +VITAMIN D3400 UNI1 PO
--- NOTE | 2018-02-17 10:34 | ED GI/GU/ABDOMINAL COMPLAINT ---
History of Present Illness General Chief Complaint: General Adult Stated Complaint: BLOOD IN STOOL THIS AM Source: patient Exam Limitations: no limitations Vital Signs & Intake/Output Vital Signs & Intake/Output Vital Signs Date Time Temp Pulse Resp B/P B/P Pulse O2 O2 Flow FiO2 Mean Ox Delivery Rate 02/17 1441 98.4 02/17 1429 77 20 138/70 96 Room Air 02/17 1348 98.2 61 18 140/81 97 Room Air 02/17 1232 98.7 61 18 148/87 96 Room Air 02/17 1010 96.9 60 18 166/75 97 Room Air Allergies Coded Allergies: oxycodone (GI, JUMPY 09/22/17) Triage Note: 82 Y/O MALE C/O 2 EPISODES OF BLOOD WITH STOOL THIS AM. STATES "I FEEL FINE" - HOWEVER NOTED "DARK" BLOOD WITH STOOL AND "PINK CLOTS". PT DENIES NAUSEA. DENIES PAIN. DENIES DIARRHEA. DENIES URINARY SYMPTOMS. PT TAKES ELIQUIS AND LAST DOSE THIS AM. AFEBRILE. Triage Nurses Notes Reviewed? yes Onset: Abrupt Duration: hour(s): HPI: 82-year-old male on eliquis for afib comes into the emergency room for further evaluation of bright red blood with clots noted with bowel movement this morning. Patient is on anticoagulants for A. fib. He denies any current abdominal pain. He reports that earlier today he felt there was some rumbling in his abdomen but denies any pain. Denies any shortness of breath lightheaded dizziness or passing out. Denies any black stool. (Sean GONZALEZ,Jacek) Reconcile Medications Amlodipine Besylate 10 MG TABLET 1 TAB PO DAILY HIGH BLOOD PRESSURE (Reported ) Apixaban (Eliquis) 5 MG TABLET 1 TAB PO BID CLOT PREVENTION/AFIB Cholecalciferol (Vitamin D3) (Vitamin D3) 400 UNIT TABLET 1 TAB PO DAILY VITAMIN SUPPORT (Reported) Empagliflozin (Jardiance) 10 MG TABLET 1 TAB PO DAILY OTHER (Reported) Furosemide 20 MG TABLET 1 TAB PO BID DIURETIC (Reported) Iron Carb,Gl/FA/B12/C/Docusate (Ferralet 90 Tablet) 90 MG-1 MG-12 MCG-120 MG-50 MG TABLET 1 TAB PO DAILY SUPPLEMENT (Reported) Losartan Potassium 100 MG TABLET 1 TAB PO DAILY HIGH BLOOD PRESSURE (Reported ) Lovastatin 40 MG TABLET 1 TAB PO DAILY HIGH CHOLESTROL (Reported) with food Magnesium Oxide (Magnesium) 500 MG CAPSULE 1 CAP PO BID SUPPLMENT (Reported) Metformin HCl 1,000 MG TABLET 1 TAB PO BID DIABETES (Reported) (Daysi FROST,Adrian Ocampo) Past History Travel History Traveled to [place] past 21 day No Medical History Any Pertinent Medical History? see below for history Neurological: NONE EENT: NONE Cardiovascular: AFIB, hypertension, hyperlipidemia Respiratory: NONE Gastrointestinal: NONE Hepatic: NONE Renal: NONE Musculoskeletal: osteoarthritis Psychiatric: NONE Endocrine: diabetes Blood Disorders: NONE Cancer(s): NONE History of MRSA: No History of VRE: No History of CDIFF: No Pneumonia Vaccine: 08/12/06 Influenza Vaccine: 08/20/17 Surgical History Surgical History: cholecystectomy, hernia repair-inguinal, knee replacement Psychosocial History Who do you live with Patient/Self Services at Home None What is your primary language [place] Tobacco Use: Never used Family History Hx Contributory? No (Jacek Shah) Review of Systems Review of Systems Constitutional: Reports: no symptoms. EENTM: Reports: no symptoms. Respiratory: Reports: no symptoms. Cardiovascular: Reports: no symptoms. GI: Reports: see HPI. Genitourinary: Reports: no symptoms. Musculoskeletal: Reports: no symptoms. Skin: Reports: no symptoms. Neurological/Psychological: Reports: no symptoms. Hematologic/Endocrine: Reports: see HPI. Immunologic/Allergic: Reports: no symptoms. All Other Systems: Reviewed and Negative (Jacek Shah) Physical Exam Physical Exam General Appearance: well developed/nourished, alert, awake Head: atraumatic, normal appearance Eyes: Bilateral: normal appearance. Ears, Nose, Throat, Mouth: hearing grossly normal, moist mucous membrane Neck: normal inspection Respiratory: no respiratory distress Gastrointestinal: soft, non-tender Rectal: no gross blood, trace positve on guiac card Back: normal inspection Extremities: normal range of motion Neurologic/Psych: awake, alert, oriented x 3 Skin: intact Core Measures ACS in differential dx? No Sepsis Present: No Sepsis Focused Exam Completed? No (Jacek Shah) Progress Differential Diagnosis: Hemorrhoid, diverticulosis, anal fissure, angiodysplasia Plan of Care: Orders Procedure Date/time Status PROTHROMBIN TIME 02/18 600 Active CBC WITHOUT DIFFERENTIAL 06/01 0600 Active BASIC ELECTROLYTES PLUS BUN&CR 02/18 0600 Active Clear Liquid Diet 02/17 D Active CBC WITHOUT DIFFERENTIAL 02/17 2000 Active FingerStick- Glucose 02/17 1515 Active Vital Signs 02/17 1431 Active Teach/Educate 02/17 1431 Active Pain Treatment and Response 02/17 1431 Active Nutritional Intake, Monitor 02/17 1431 Active Isolation 02/17 1431 Active Intake & Output 02/17 1431 Active Patient Care Conference 02/17 1431 Active Activity/Ambulation 02/17 1431 Active Pathway - chart 02/17 1336 Active House Staff 02/17 1336 Active Patient Data 02/[address] in observation 02/17 1204 Active ED Holding Orders 02/17 1204 Active Vital Signs 02/17 1204 Active Code Status 02/17 1204 Active EKG 02/17 1139 Active Intake & Output 02/17 1043 Active PARTIAL THROMBOPLASTIN TIME 02/17 1014 Complete PROTHROMBIN TIME 02/17 1014 Complete COMPREHENSIVE METABOLIC PANEL 02/17 1014 Complete CBC WITHOUT DIFFERENTIAL 02/17 1014 Complete TYPE & SCREEN (NOT X-MATCH) 02/17 1014 Complete Current Medications Sig/Becca Start time Last Medication Dose Stop Time Status Admin Amlodipine Besylate 10 MG DAILY 02/18 0900 AC (Norvasc) Atorvastatin Calcium 10 MG Q48 02/18 09 AC (Lipitor) Cholecalciferol 1,000 IU DAILY 02/18 0900 AC (Vitamin D) Losartan Potassium 100 MG DAILY 02/18 09 AC (Cozaar) Apixaban 5 MG BID 02/17 2100 AC (Eliquis) Furosemide 20 MG BID 02/17 2100 AC (Lasix) Magnesium Oxide 400 MG BID 02/17 2100 AC (Mag-Ox) Insulin Aspart 0 TIDAC 02/17 1700 AC (NovoLOG) Acetaminophen 325 MG Q6P PRN 02/17 1345 AC (Tylenol) Acetaminophen 1,000 MG Q6P PRN 02/17 1345 AC (Ofirmev) Laboratory Tests 02/17/18 1040: Anion Gap 10, Estimated GFR > 60, BUN/Creatinine Ratio 25.0, Glucose 138 H, Calcium 9.5, Total Bilirubin 2.2 H, AST 38, ALT 34, Alkaline Phosphatase 107, Total Protein 7.9, Albumin 4.2, Globulin 3.7, Albumin/Globulin Ratio 1.1, PT 15.3 H, INR 1.40 H, APTT 33, CBC w Diff NO MAN DIFF REQ, RBC 5.18, MCV 77.9 L , MCH 26.0 L, MCHC 33.4, RDW 16.9 H, MPV 9.5, Gran % 54.6, Lymphocytes % 36.9, Monocytes % 5.4, Eosinophils % 2.6, Basophils % 0.5, Absolute Granulocytes 4.3, Absolute Lymphocytes 2.9, Absolute Monocytes 0.4, Absolute Eosinophils 0.2, Absolute Basophils 0 Initial ED EKG: none (Jacek Shah) Departure Departure Disposition: STILL A PATIENT Condition: Stable Clinical Impression Primary Impression: Lower GI bleed Referrals: Reggie FROST,Adrian Mendoza (PCP/Family) Departure Forms: Customer Survey General Discharge Information Comments 02/17/2018 1:39:05 PM Spoke with on-call GI doctor. Patient will stay for serial H&H's and GI consultation. High risk. Medically not safe for discharge at this time. (Jacek Shah) Observation Note Spoke With: Jack Sarkar MD Physician Advisor Notified: ADRIAN TAVAREZ MD Place Patient In: Non-ED OBS Care Area Rationale for Observation: My rational for observation is as follows [GI consultation and serial hematocrits. If he begins to bleed again he will need colonoscopy plus or minus interventional radiology.]. PA/BUOY TENDER Co-Sign Statement Statement: ED Attending supervision documentation- [X] I saw and evaluated the patient. I have also reviewed all the pertinent lab results and diagnostic results. I agree with the findings and the plan of care as documented in the PA's/BUOY TENDER's documentation. [X] I have reviewed the ED Record and agree with the PA's/BUOY TENDER's documentation. [] Additions or exceptions (if any) to the PAs/BUOY TENDER's note and plan are summarized below: [See above note] (Adrian Tavarez MD)
[2018-02-17 10:55] LABS: ABSOLUTE BASOPHIL COUNT 0 /CUMM (0.0-0.2); ABSOLUTE EOSINOPHIL COUNT 0.2 /CUMM (0.0-0.7); ABSOLUTE GRANULOCYTE CT 4.3 /CUMM (1.4-6.5); ABSOLUTE LYMPH COUNT 2.9 /CUMM (1.2-3.4); ABSOLUTE MONOCYTE COUNT 0.4 /CUMM (0.10-0.60); BASOPHIL % 0.5 % (0.0-2.0); EOSINOPHIL % 2.6 % (0-5); GRANULOCYTE % 54.6 % (42.2-75.2); HEMATOCRIT 40.4 % (42-52); MEAN CORPUSCULAR HGB CONC 33.4 G/DL (33.0-37.0); MEAN CORPUSCULAR VOLUME 77.9 FL (80.0-94.0); MEAN PLATELET VOLUME 9.5 FL (7.4-10.4); PLATELET COUNT 237 /CUMM (130-400); RBC DISTRIBUTION WIDTH 16.9 % (11.5-14.5); RED BLOOD CELL CT 5.18 /CUMM (4.70-6.10); WHITE BLOOD CELL COUNT 7.9 /CUMM (4.8-10.8)
[2018-02-17 10:59] LABS: PT 15.3 SEC (9.4-12.5); PTT 33 SEC (25-37)
--- NOTE | 2018-02-17 12:32 | History & Physical ---
Kris Adkins 02/17/18 1232: General Information and HPI MD Statement: I have seen and personally examined ADOLPH GUPTA and documented this H&P. The patient is a 82 year old M who presented with a patient stated chief complaint of [clots per rectum]. Source of Information: patient Exam Limitations: no limitations History of Present Illness: Mr. Garcia is an 82-year-old male with significant past medical history of atrial fibrillation [on Eliquis], hypertension, hyperlipidemia, and diabetes who presents to the hospital with complaints of passing blood per rectum. He states that he he woke up and started his day as normal, and after breakfast he had taken his medications. He felt some urgency, went to the bathroom and passed a few blood clots. He states that this is never happened before. He states he has never had any bleeding per rectum before. He is never had any blood with wiping before. He resumed his day without any difficulty, and states a little while later he had another bowel movement which was completely brown and no signs of blood. Otherwise, he denies any acute complaints including chest pain, dyspnea, dizziness, lightheadedness, abdominal pain, nausea/vomiting, diarrhea or constipation. He denies any fevers or chills. Of note, he had a screening colonoscopy in April 2017 which revealed mild diverticulosis, with some polyps which were removed. Vitals on admission temperature 96.9, pulse rate 60, respiratory rate 18, blood pressure 166/75 saturating 97% on room air. Physical exam unremarkable overall with rectal exam showing brown stool, trace Hemoccult positive. Labs were significant for hemoglobin/hematocrit 13.5/77.9, white count 7.9. Electrolytes were unremarkable. Total bilirubin slightly elevated 2.2, chronically elevated. INR 1.40. Allergies/Medications Allergies: Coded Allergies: oxycodone (GI, JUMPY 09/22/17) Home Med list Amlodipine Besylate 10 MG TABLET 1 TAB PO DAILY HIGH BLOOD PRESSURE (Reported ) Apixaban (Eliquis) 5 MG TABLET 1 TAB PO BID CLOT PREVENTION/AFIB Cholecalciferol (Vitamin D3) (Vitamin D3) 400 UNIT TABLET 1 TAB PO DAILY VITAMIN SUPPORT (Reported) Empagliflozin (Jardiance) 10 MG TABLET 1 TAB PO DAILY OTHER (Reported) Furosemide 20 MG TABLET 1 TAB PO BID DIURETIC (Reported) Iron Carb,Gl/FA/B12/C/Docusate (Ferralet 90 Tablet) 90 MG-1 MG-12 MCG-120 MG-50 MG TABLET 1 TAB PO DAILY SUPPLEMENT (Reported) Losartan Potassium 100 MG TABLET 1 TAB PO DAILY HIGH BLOOD PRESSURE (Reported ) Lovastatin 40 MG TABLET 1 TAB PO DAILY HIGH CHOLESTROL (Reported) with food Magnesium Oxide (Magnesium) 500 MG CAPSULE 1 CAP PO BID SUPPLMENT (Reported) Metformin HCl 1,000 MG TABLET 1 TAB PO BID DIABETES (Reported) Past History Travel History Traveled to [place] past 21 day No Medical History Neurological: NONE EENT: NONE Cardiovascular: AFIB, hypertension, hyperlipidemia Respiratory: NONE Gastrointestinal: NONE Hepatic: NONE Renal: NONE Musculoskeletal: osteoarthritis Psychiatric: NONE Endocrine: diabetes Blood Disorders: NONE Cancer(s): NONE History of MRSA: No History of VRE: No History of CDIFF: No Pneumonia Vaccine: 08/12/06 Influenza Vaccine: 08/20/17 Surgical History Surgical History: cholecystectomy, hernia repair-inguinal, knee replacement Past Family/Social History Psychosocial History Services at Home: None Review of Systems Review of Systems Constitutional: Reports: see HPI. Exam & Diagnostic Data Last 24 Hrs of Vital Signs/I&O Vital Signs Date Time Temp Pulse Resp B/P B/P Pulse O2 O2 Flow FiO2 Mean Ox Delivery Rate 02/17 1232 98.7 61 18 148/87 96 Room Air 02/17 1010 96.9 60 18 166/75 97 Room Air Intake & Output 02/17 1600 02/17 0800 02/17 0000 Intake Total Output Total Balance Patient 127.006 kg Weight Weight Standing Scale Measurement Method Physical Exam General Appearance Alert, Oriented X3, Cooperative, No Acute Distress Skin No Significant Lesion Skin Temp/Moisture Exam: Warm/Dry HEENT Atraumatic, EOMI Neck Supple, No JVD Cardiovascular Normal S1, Normal S2, irregularly irregular rhythm Lungs Clear to Auscultation, Normal Air Movement Abdomen Normal Bowel Sounds, Soft, No Tenderness, distended/obese Extremities No Edema, No Tenderness/Swelling Rectal per ER, brown stool, trace hemocult positive Assessment/Plan Assessment: Mr. Garcia is an 82-year-old male with significant past medical history of atrial fibrillation [on Eliquis], hypertension, hyperlipidemia, and diabetes who presents to the hospital with complaints of passing blood per rectum. Labs were significant for hemoglobin/hematocrit 13.5/77.9, white count 7.9. Electrolytes were unremarkable. Total bilirubin slightly elevated 2.2, chronically elevated. INR 1.40. Problem List/Assessment and Plan Blood per rectum with hx of AFib on Eliquis * We will admit to for observation and repeat CBC in the am * No gross pathology on colonoscopy in apr 2017. No hemorrhoids appreciated * At the moment, I am unsure of the etiology of his bleeding - possibly 2/2 a bleeding diverticulum, which has resolved. * He is hemodynamically stable, and his H/H is grossly unremarkable. Given his atrial fibrillation and high CHADSVASC score, we will continue his eliquis for now. Chronic medical problems including: HTN, DM, HLD * Continue home medications as ordered, but we will hold PO anti-hyperglycemics * Novolog SS and CC2 diet ordered FULL CODE Pain path as ordered DVT ppx w eliquis CC2 diet As Ranked By This Provider Problem List: 1. Blood per rectum 2. A-fib 3. Hypertension 4. Diabetes mellitus 5. Hyperlipidemia 6. Full code status Core Measures/Misc (06/06) Acute Coronary Syndrome ACS Diagnosis: No Congestive Heart Failure Congestive Heart Failure Diagnosis No Cerebrovascular Accident CVA/TIA Diagnosis: No VTE (View Protocol) VTE Risk Factors Age>40 No Mechanical VTE Prophylaxis d/t LowRisk-No Interven Req'd No VTE Pharm Prophylaxis d/t NA PharmProphylax ordered Sepsis (View protocol) Sepsis Present: No If YES complete Sepsis Event Note If YES complete Sepsis Event Note Jack Sarkar MD 02/17/18 1516: Core Measures/Misc (06/06) Sepsis (View protocol) If YES complete Sepsis Event Note If YES complete Sepsis Event Note Attending MD Review Statement Attending Statement Attending MD Statement: examined this patient, discuss w/resident/PA/HEAD OF DRAMA, agreed w/resident/PA/HEAD OF DRAMA, reviewed EMR data (avail), discussed with nursing, amended to note Attending Assessment/Plan: Patient is a very pleasant 82-year-old male with history of atrial fibrillation on anticoagulation with Eliquis who presented to the emergency room today with complaints of bright red blood per rectum. Denies any similar episodes in the past. Denies dizziness or lightheadedness or any other signs suggestive of severe hemorrhagic volume loss. He arrived emergency room hemodynamically stable. He has had colonoscopies in the past the last was in 2013 where he was found to have an adenomatous polyp as well as sigmoid diverticulosis. On examination he is resting comfortably and not in any distress. He is very jovial. Heart sounds are regular. Lungs are clear to auscultation. Abdomen is significantly obese soft and nontender with normal bowel sounds. He has trace peripheral edema. Plan: -Observe over the next 24-48 hours in the medical unit. -Serial H&H. Transfuse if hemoglobin level is less than 8. We will transfuse earlier if hemodynamically unstable. -Hold anticoagulation therapy for now. DVT prophylaxis with bilateral compression devices. -Gastroenterology evaluation appreciated. Please follow-up with the service regarding timing and prep for colonoscopy. -Clear liquid diet.
--- NOTE | 2018-02-17 14:05 | Cons- Gastroenterology ---
See Addendum General Information and HPI Consulting Request Date of Consult: 02/17/18 Requested By: Jack Sarkar MD Reason for Consult: 1. Hematochezia 2. Diverticulosis Source of Information: patient, electronic medical record Exam Limitations: no limitations History of Present Illness: Patient is an 82-year-old male who is a patient of Dr. Mateus Giraldo. He presents today after 2 episodes of hematochezia. Mr. Donovan has a H choledocholithiasis for which he underwent ERCP. He is currently taking Eliquis for atrial fibrillation. H is also significant for HTN and hyperlipidemia. Mr. Donovan last had a colonoscopy in 2013 when he was found to have an adenomatous polyp that was removed as well as sigmoid diverticulosis. Mr. Donovan was in his normal state of health and and had no premonitory nausea vomiting abdominal pain fever or shaking chills. He had breakfast and went to the bathroom and when he turned around noted that there was blood admixed with the stool and in the toilet bowl. He had had some mild premonitory abdominal cramping associated with bowel movement but did not think much of it. However shortly thereafter he had abdominal cramping and return to the bathroom and had a large volume of maroonish blood. He had no lightheadedness, chest pain or palpitations. He denies shortness of breath. He has had no change in bowel habit or stool caliber. He is currently comfortable. He has had no further hematochezia since being seen in the ED. Allergies/Medications Allergies: Coded Allergies: oxycodone (GI, JUMPY 09/22/17) Home Med List: Amlodipine Besylate 10 MG TABLET 1 TAB PO DAILY HIGH BLOOD PRESSURE (Reported ) Apixaban (Eliquis) 5 MG TABLET 1 TAB PO BID CLOT PREVENTION/AFIB Cholecalciferol (Vitamin D3) (Vitamin D3) 400 UNIT TABLET 1 TAB PO DAILY VITAMIN SUPPORT (Reported) Empagliflozin (Jardiance) 10 MG TABLET 1 TAB PO DAILY OTHER (Reported) Furosemide 20 MG TABLET 1 TAB PO BID DIURETIC (Reported) Iron Carb,Gl/FA/B12/C/Docusate (Ferralet 90 Tablet) 90 MG-1 MG-12 MCG-120 MG-50 MG TABLET 1 TAB PO DAILY SUPPLEMENT (Reported) Losartan Potassium 100 MG TABLET 1 TAB PO DAILY HIGH BLOOD PRESSURE (Reported ) Lovastatin 40 MG TABLET 1 TAB PO DAILY HIGH CHOLESTROL (Reported) with food Magnesium Oxide (Magnesium) 500 MG CAPSULE 1 CAP PO BID SUPPLMENT (Reported) Metformin HCl 1,000 MG TABLET 1 TAB PO BID DIABETES (Reported) Current Medications: Current Medications Sig/Becca Start time Last Medication Dose Route Stop Time Status Admin Acetaminophen 325 MG Q6P PRN 02/17 1345 AC PO Acetaminophen 1,000 MG Q6P PRN 02/17 1345 AC IV Amlodipine Besylate 10 MG DAILY 02/18 0900 AC PO Apixaban 5 MG BID 02/17 2100 UNVr PO Atorvastatin Calcium 10 MG .[EVERY OTHER DAY ] 02/18 1000 UNVr PO Cholecalciferol 1,000 IU DAILY 02/18 900 UNVr PO Furosemide 20 MG BID 02/17 2100 UNVr PO Losartan Potassium 100 MG DAILY 02/18 09 AC PO Magnesium Oxide 400 MG BID 02/17 2100 UNVr PO Past History Travel History Traveled to [place] past 21 day No Medical History Neurological: NONE EENT: NONE Cardiovascular: AFIB, hypertension, hyperlipidemia Respiratory: NONE Gastrointestinal: NONE Hepatic: NONE Renal: NONE Musculoskeletal: osteoarthritis Psychiatric: NONE Endocrine: diabetes Blood Disorders: NONE Cancer(s): NONE Surgical History Surgical History: cholecystectomy, hernia repair-inguinal, knee replacement Psychosocial History Services at Home: None Review of Systems Review of Systems Constitutional: Reports: no symptoms. EENTM: Reports: no symptoms. Cardiovascular: Reports: no symptoms. Respiratory: Reports: no symptoms. GI: Reports: see HPI. Genitourinary: Reports: no symptoms. Musculoskeletal: Reports: joint pain. Skin: Reports: change in skin color. Neurological/Psychological: Reports: numbness. Exam & Diagnostic Data Vital Signs and I&O Vital Signs Date Time Temp Pulse Resp B/P B/P Pulse O2 O2 Flow FiO2 Mean Ox Delivery Rate 02/17 1348 98.2 61 18 140/81 97 Room Air 02/17 1232 98.7 61 18 148/87 96 Room Air 02/17 1010 96.9 60 18 166/75 97 Room Air Intake & Output 02/17 1600 02/17 0400 02/16 1600 02/16 0400 02/15 1600 02/15 0400 Intake Total Output Total Balance Patient 280 lb Weight Weight Standing Scale Measurement Method Physical Exam General Appearance: well developed/nourished, comfortable Head: atraumatic Eyes: Bilateral: normal appearance. Ears, Nose, Throat: hearing grossly normal Neck: normal inspection, supple, full range of motion Respiratory: normal breath sounds, lungs clear Cardiovascular: regular rate/rhythm, Normal S1 and S2 without rub, murmur or gallop, distant HS Gastrointestinal: normal bowel sounds, soft, non-tender, no organomegaly Extremities: hyperpigmentations shins bilaterally Neurologic/Psych: awake, alert, oriented x 3, normal mood/affect Cranial Nerves: cranial nerves II-XII intact Assessment/Plan Assessment/Recommendations: ASSESSMENT: 1. Hematochezia. Likely diverticular likely diverticular given clinical presentation with mild premonitory cramping relieved by passage of bloody bowel movement. 2. Atrial fibrillation on Eliquis 3. Diabetes mellitus 4. Status post left hip replacement. Patient reports difficulty walking after hip replacement has appointment with orthopedic surgery in the near future. RECOMMENDATIONS: 1. Serial H&H 2. Transfuse as needed 3. If no further bleeding patient is due for colonoscopy which can be scheduled as an outpatient. 4. Hold Eliquis. 5. Will discuss with Dr. Guerrero today. If possible may be able to prep patient for colonoscopy tonight and do colonoscopy tomorrow. 6. Clear liquid diet. 7. Repeat PT/INR in a.m. Consult Acknowledgment - Thank you for your consult request.
[2018-02-17 14:29] VITALS: BP 138/70
[2018-02-17 22:11] LABS: ABSOLUTE BASOPHIL COUNT 0 /CUMM (0.0-0.2); ABSOLUTE EOSINOPHIL COUNT 0.2 /CUMM (0.0-0.7); ABSOLUTE GRANULOCYTE CT 4.1 /CUMM (1.4-6.5); ABSOLUTE LYMPH COUNT 1.8 /CUMM (1.2-3.4); ABSOLUTE MONOCYTE COUNT 0.4 /CUMM (0.10-0.60); BASOPHIL % 0.4 % (0.0-2.0); EOSINOPHIL % 3.6 % (0-5); GRANULOCYTE % 61.6 % (42.2-75.2); HEMATOCRIT 36.9 % (42-52); MEAN CORPUSCULAR HGB CONC 32.7 G/DL (33.0-37.0); MEAN CORPUSCULAR VOLUME 79.5 FL (80.0-94.0); MEAN PLATELET VOLUME 9.6 FL (7.4-10.4); PLATELET COUNT 225 /CUMM (130-400); RBC DISTRIBUTION WIDTH 17.2 % (11.5-14.5); RED BLOOD CELL CT 4.64 /CUMM (4.70-6.10); WHITE BLOOD CELL COUNT 6.6 /CUMM (4.8-10.8)
[2018-02-17 22:49] VITALS: BP 141/66
[2018-02-18 06:04] VITALS: BP 126/65
--- NOTE | 2018-02-18 07:40 | PN- Housestaff ---
Mike FROST,Radha 02/18/18 0739: Subjective Follow-up For: GI BLEED Subjective: In sitting comfortably in bed. He denies any continued hematochezia or melena. Denies any abdominal pain. No other symptoms. 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 Review of Systems Constitutional: Reports: no symptoms. EENTM: Reports: no symptoms. Cardiovascular: Reports: no symptoms. Respiratory: Reports: no symptoms. Gastrointestinal: Reports: no symptoms. Musculoskeletal: Reports: joint pain. Skin: Reports: no symptoms. Objective Last 24 Hrs of Vital Signs/I&O Vital Signs Date Time Temp Pulse Resp B/P B/P Pulse O2 O2 Flow FiO2 Mean Ox Delivery Rate 02/18 1406 97.6 58 20 130/70 97 Room Air 02/18 0900 148/68 02/18 0900 62 148/68 02/18 0604 98.2 85 22 126/65 93 Room Air 02/17 2249 98.3 58 20 141/66 94 Intake & Output 02/18 1600 02/18 0800 02/18 0000 Intake Total 250 250 Output Total 1000 900 Balance -750 -650 Intake, IV 10 10 Intake, Oral 240 240 Output, Urine 1000 900 Physical Exam General Appearance: Alert, Oriented X3, Cooperative, No Acute Distress Skin: No Rashes, No Breakdown, No Significant Lesion Cardiovascular: Regular Rate, Normal S1, Normal S2 Lungs: Clear to Auscultation, Normal Air Movement Abdomen: Normal Bowel Sounds, Soft, No Tenderness, No Hepatospenomegaly Neurological: Normal Speech Current Medications: Current Medications Sig/Becca Start time Last Medication Dose Route Stop Time Status Admin Acetaminophen 325 MG Q6P PRN 02/17 1345 AC PO Acetaminophen 1,000 MG Q6P PRN 02/17 1345 AC IV Amlodipine Besylate 10 MG DAILY 02/18 09 AC 02/18 PO 0900 Apixaban 5 MG BID 02/17 2100 DC PO Atorvastatin Calcium 10 MG Q48 02/18 09 AC 02/18 PO 0900 Cholecalciferol 1,000 IU DAILY 02/18 09 AC 02/18 PO 0859 Furosemide 20 MG BID 02/17 2100 AC 02/18 PO 0900 Insulin Aspart 0 TIDAC 02/17 1700 AC 02/18 SC 1343 Losartan Potassium 100 MG DAILY 02/18 09 AC 02/18 PO 0900 Magnesium Oxide 400 MG BID 02/17 2100 AC 02/18 PO 0900 Patient Medication 1 ED ONE ONE 02/18 1545 [facility] ED 02/18 1546 Last 24 Hrs of Lab/Bulmaro Results Last 24 Hrs of Labs/Mics: Laboratory Tests 02/18/18 0650: Anion Gap 11, Estimated GFR > 60, BUN/Creatinine Ratio 21.1, PT 14.0 H, INR 1.28 H, CBC w Diff NO MAN DIFF REQ, RBC 4.95, MCV 78.7 L, MCH 26.0 L, MCHC 33.1, RDW 17.3 H, MPV 10.2, Gran % 61.0, Lymphocytes % 29.4, Monocytes % 4.7, Eosinophils % 4.4, Basophils % 0.5, Absolute Granulocytes 4.4, Absolute Lymphocytes 2.1, Absolute Monocytes 0.3, Absolute Eosinophils 0.3, Absolute Basophils 0 02/17/182115: CBC w Diff NO MAN DIFF REQ, RBC 4.64 L, MCV 79.5 L, MCH 26.0 L, MCHC 32.7 L, RDW 17.2 H, MPV 9.6, Gran % 61.6, Lymphocytes % 27.7, Monocytes % 6.7, Eosinophils % 3.6, Basophils % 0.4, Absolute Granulocytes 4.1, Absolute Lymphocytes 1.8, Absolute Monocytes 0.4, Absolute Eosinophils 0.2, Absolute Basophils 0 Assessment/Plan Assessment: Mr. Garcia is an 82-year-old male with significant past medical history of atrial fibrillation [on Eliquis], hypertension, hyperlipidemia, and diabetes who presents to the hospital with complaints of passing blood per rectum. Labs were significant for hemoglobin/hematocrit 13.5/77.9, white count 7.9. Electrolytes were unremarkable. Total bilirubin slightly elevated 2.2, chronically elevated. INR 1.40. Problem List/Assessment and Plan Blood per rectum with hx of AFib on Eliquis * We will admit to for observation and repeat CBC in the morning was 12.1. * No gross pathology on colonoscopy in apr 2017. No hemorrhoids appreciated * At the moment, I am unsure of the etiology of his bleeding - possibly 2/2 a bleeding diverticulum, which has resolved. * He is hemodynamically stable, and his H/H is grossly unremarkable. Given his atrial fibrillation and high CHADSVASC score, he will ultimately require Eliquis but we will hold it for 48 hours due to his GI bleed as per service order taker. He will be advised to follow-up with Dr. Guerrero in 2 weeks who will arrange for colonoscopy if needed. 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 He will follow-up with his PCP Danilo Paredes MD in 1-2 weeks. FULL CODE Pain path as ordered DVT ppx w eliquis CC2 diet Problem List: 1. Lower GI bleed Pain Ratin Pain Location: na Pain Goal: Remain pain free Pain Plan: na Tomorrow's Labs & Rationales: mickie Sarkar MD,Jack 02/18/18 1130: Attending MD Review Statement Attending Statement Attending MD Statement: examined this patient, discuss w/resident/PA/NURSE PRACTITIONER HOSPITALIST, agreed w/resident/PA/NURSE PRACTITIONER HOSPITALIST, reviewed EMR data (avail), discussed with nursing, discussed with case mgmt, amended to note Attending Assessment/Plan: Patient seen and examined. No issues overnight reported by nursing staff. Remains afebrile and hemodynamically stable. Resting comfortably and not in any acute distress. Patient remains very jovial. Denies any bowel movements overnight. Denies any blood per rectum. He remains hemodynamically stable. Hemoglobin level is stable this morning. In the absence of any evidence of significant bleeding patient is medically stable to be discharged home today. Recommend following up with a gastroenteritis service regarding timing of outpatient colonoscopy and when patient may resume anticoagulation therapy. After the recommendations are obtained from the service, patient may be discharged home today.
[2018-02-18 09:40] LABS: ABSOLUTE BASOPHIL COUNT 0 /CUMM (0.0-0.2); ABSOLUTE EOSINOPHIL COUNT 0.3 /CUMM (0.0-0.7); ABSOLUTE GRANULOCYTE CT 4.4 /CUMM (1.4-6.5); ABSOLUTE LYMPH COUNT 2.1 /CUMM (1.2-3.4); ABSOLUTE MONOCYTE COUNT 0.3 /CUMM (0.10-0.60); BASOPHIL % 0.5 % (0.0-2.0); EOSINOPHIL % 4.4 % (0-5); HEMATOCRIT 38.9 % (42-52); MEAN CORPUSCULAR HGB CONC 33.1 G/DL (33.0-37.0); MEAN CORPUSCULAR VOLUME 78.7 FL (80.0-94.0); MEAN PLATELET VOLUME 10.2 FL (7.4-10.4); PLATELET COUNT 220 /CUMM (130-400); RBC DISTRIBUTION WIDTH 17.3 % (11.5-14.5); RED BLOOD CELL CT 4.95 /CUMM (4.70-6.10); WHITE BLOOD CELL COUNT 7.1 /CUMM (4.8-10.8)
[2018-02-18] MEDS ORDERED: ELIQUIS5 M1 PO ×2 (11:45→13:28)
--- NOTE | 2018-02-18 11:49 | Patient Discharge Instructions ---
Discharge Instructions General Discharge Information You were seen/treated for: lower GI bleed Special Instructions: 1. please follow up with PCP in one week 2. please follow up with GI doctor in 2 weeks, Dr. Mateus Guerrero Diet Continue normal diet: Yes Activity Full Activity/No Limits: Yes Acute Coronary Syndrome Inclusion Criteria At DC or during hospital stay patient has or had the following: ACS DIAGNOSIS No Discharge Core Measures Meds if any: Prescribed or Continued at Discharge Meds if any: NOT Prescribed or Continued at Discharge Congestive Heart Failure Inclusion Criteria At DC or during hospital stay patient has or had the following: CHF DIAGNOSIS No Discharge Core Measures Meds if any: Prescribed or Continued at Discharge Meds if any: NOT Prescribed or Continued at Discharge Cerebrovascular accident Inclusion Criteria At DC or during hospital stay patient has or had the following: CVA/TIA Diagnosis No Discharge Core Measures Meds if any: Prescribed or Continued at Discharge Meds if any: NOT Prescribed or Continued at Discharge Venous thromboembolism Inclusion Criteria VTE Diagnosis No VTE Type NONE VTE Confirmed by (Test) NONE Discharge Core Measures - Per Current guidelines, there needs to be overlap - treatment for the first 5 days of Warfarin therapy. - If discharged on Warfarin prior to 5 days of - overlap therapy, the patient will need to be - assessed for post discharge needs including - *Post discharge parental anticoagulation - *Warfarin and/or parental anticoagulation education - *Follow up date to check INR post discharge At least 5 days overlap therapy as Inpatient No Meds if any: Prescribed or Continued at Discharge Note: Overlap Therapy is Warfarin and Anticoagulant Meds if any: NOT Prescribed or Continued at Discharge
[2018-02-18 14:06] VITALS: BP 130/70
== END 2018-02-18 16:30 ==
LOC: ERH 09:53 → ERHI 12:04 → 2NA 12:04 → ENRESERV 13:06 → ENTRNSPT 13:48 → EDTRNSPT 13:54 → EDTRNSPTSTS 13:54 → 2NA 14:02 → CMPTRNSPT 14:18 → ENPENDDIS 02-18 11:59 → 2NA 02-18 16:30 → ENTRNSPT 02-18 16:40 → CMPTRNSPT 02-18 16:57
PROVIDERS: Internal Medicine Cardiovascular Disease; Physician Assistant Medical
DX: K92.2 Gastrointestinal hemorrhage, unspecified (principal); I48.91 Unspecified atrial fibrillation; Z79.01 Long term (current) use of anticoagulants; I10 Essential (primary) hypertension; E78.5 Hyperlipidemia, unspecified; E11.9 Type 2 diabetes mellitus without complications; Z79.84 Long term (current) use of oral hypoglycemic drugs; M19.90 Unspecified osteoarthritis, unspecified site; Z96.642 Presence of left artificial hip joint
CPT/HCPCS: 6030; 36592; 82436; 93005; 93010; G0378; J3490